=== PATIENT | female | born 1975 | race Caucasian/White ===

== ENCOUNTER 2019-02-04 10:48 | Outpatient (RCR) | payer BC, SELFPAY ==
--- NOTE | ~2019-02-04 | US_ITS ---
EXAMINATION: US OB limited DATE: 02/04/2019 12:29 INDICATION: Spotting. Fall. Second trimester. TECHNIQUE: Real-time ultrasound of the pelvis was performed. COMPARISON: None. FINDINGS: There is a single fetus in breech presentation. The placenta is fundal and posterior. heart ra te is 134 beats per minute (bpm). The amniotic fluid volume is subjectively normal. IMPRESSION: 1. Single living fetus in breech presentation. Reviewed, dictated and finalized at location A. S ENABLEMENT MANAGER
[2019-02-04 13:14] VITALS: BP 131/77; PULSE 94
== END 2019-05-05 23:59 | disposition home or self-care (01) ==
LOC: ANHOBOP 10:48
PROVIDERS: PCP Family Medicine; Visit Provider Obstetrics & Gynecology
DX: O99.89 Other specified diseases and conditions complicating pregnancy, childbirth and the puerperium (principal); W19.XXXA Unspecified fall, initial encounter; Z3A.22 22 weeks gestation of pregnancy
CPT/HCPCS: 59025; 76815

== ENCOUNTER 2019-06-07 10:00 | Outpatient (CLI) | payer BC, SELFPAY ==
[2019-06-07 10:26] LABS: Hematocrit 32.7 % (37.0-47.0); Hemoglobin 10.8 g/dL (12.0-15.0); Mean Corpuscular Hemoglobin 28.3 pg (26-34); Mean Corpuscular Volume 85.6 fl (80-100); Mean Platelet Volume 11.4 fl (7.4-10.4); Platelet Count Result 214 k/mm3 (150-375); Red Blood Count 3.82 M/mm3 (4.2-5.4); Red Cell Distribution Width 14.3 % (11.5-14.5); White Blood Count 13.2 K/mm3 (4.5-10.0)
[2019-06-08 11:10] LABS: Rapid Plasma Reagin Non-Reactive (NonReactive)
== END 2019-06-07 10:01 | disposition home or self-care (01) ==
PROVIDERS: PCP Family Medicine; Visit Provider Obstetrics & Gynecology
DX: Z34.93 Encounter for supervision of normal pregnancy, unspecified, third trimester (principal); Z3A.00 Weeks of gestation of pregnancy not specified
CPT/HCPCS: 36415; 85027; 86592; 86850; 86900; 86901

== ENCOUNTER 2019-06-08 05:14 | Inpatient (IN) | payer BC, SELFPAY ==
--- NOTE | 2019-05-18 13:04 | PC.NURSE ---
VERIFIED WITH OR SCHEDULE AND PATIENT --C/S ON 06/08/19 AT 1030 PATIENT GIVEN REQUISITION FOR LAB DRAW ON 06/07/2019
--- NOTE | 2019-06-07 11:00 | PM.IMHP ---
H&P: HPI History of Present Illness Chief complaint: Prior Narrative: Marlys Zheng is a 43 year old female 031 whose last menstrual period was 09/02/2018, EDC is 06/09/2019, presents at 39 weeks gestation for repeat section. She declined attempted vaginal after . She had a prior section. The has been uncomplicated short of being advanced maternal age. Review of Systems Review of Systems: All systems reviewed & are unremarkable except as noted in HPI and below PMFSH Family History Family History Father Diabetes mellitus Hypertension MRSA (methicillin resistant Staphylococcus aureus) Mother H/O: hysterectomy Cholecystectomy planned Sibling Hypothyroidism Grandparent Acute myocardial infarction Cerebrovascular accident Grandparent Lung cancer Grandparent Heart disease Social History Social History Smoking status: Never smoker Alcohol intake: current Substance use: never Spiritual care concerns: No Meds Home Medications and Allergies Home Medications Medication Instructions Recorded Confirmed Type PNV cmb#95-ferrous fumarate-FA 1 tablet PO DAILY 05/18/19 05/18/19 History [] calcium carbonate-vitamin D3 1 tablet PO DAILY 05/18/19 05/18/19 History [Calcium 500 + D] diphenhydramine HCl [Benadryl] 50 mg PO HS 05/18/19 05/18/19 History fluticasone propionate [Flonase 1 spray INTRANASAL BID 05/18/19 05/18/19 History Allergy Relief] Allergies Allergy/AdvReac Type Severity Reaction Status Date / Time iodine Allergy Severe Anaphylactic Verified 05/18/19 12:30 Shock mercury (elemental) Allergy Severe ANAPHAL. Unverified 05/18/19 12:30 SHOCK aluminum Allergy Intermediate HIVES Verified 12/02/16 13:40 nickel Allergy Unknown Rash Verified 09/21/18 09:46 cobalt Allergy Anaphylactic Verified 05/18/19 12:30 Shock SHELLFISH Allergy Unknown ANAPHAL. Uncoded 12/02/16 13:39 SHOCK Exam Const: General: no acute distress Eyes: General: appearance normal, both eyes and all related structures Neck: Neck: supple and no JVD Thyroid: thyroid normal Resp: Effort & Inspection: normal respiratory effort Auscultation: clear to auscultation bilaterally Cardio: Rate: regular rate Rhythm: regular rhythm GI: Inspection: normal to inspection Auscultation: normal bowel sounds Other: gravid soft uterus : General: Yes bladder normal to palpation External Female Exam: normal external appearance Speculum Exam - Vagina: normal vaginal discharge and No vaginal bleeding Speculum Exam - Cervix: nontender Bimanual exam- vagina & uterus: bladder normal to palpation and No Cervical tenderness present OB/external & speculum: No vaginal bleeding Skin: General skin exam: no rashes or lesions noted Extrem: General: normal to inspection and no edema Psych: Mental Status: mental status grossly normal Affect: normal affect Assessment and Plan Additional Plan impression: Term with previous section/ AMA Plan: Repeat section
[2019-06-08] VITALS (62 sets, daily range): BP systolic 124–173; BP diastolic 58–146; PULSE 64–88; RESP 11–16; TEMP 36.2–37; O2SAT 95–100; BMI 38.9
[2019-06-08] MEDS: LACTATED RINGERS 1,000 ML 999 ML IV CONT (05:53)
--- NOTE | 2019-06-08 06:35 | WPDHPUPDATE1 ---
History and Physical Update Update Date/Time: 06/08/19 06:35 History and Physical has been reviewed, including an updated exam of the patient. There are NO changes in the patient's condition. Risks, benefits, and alternatives have been discussed and questions answered. Patient agrees to proceed with procedure.
[2019-06-08] MEDS: LACTATED RINGERS 1,000 ML 125 ML IV CONT (06:36)
--- NOTE | 2019-06-08 07:14 | P.PNAN_ITS ---
Anes - Initial Pre Proc Eval Procedure: Operation Date: 06/08/19 07:30 Proposed Procedures p Repeat Section - Augustin Waldrop MD Date/Time: 06/08/19 07:14 Surgeon: Augustin Waldrop MD Pre Op Diagnosis: R Patient Data Age: 43 Gender: F Height: 5 ft 7 in Weight: 113 kg Last Vital Signs Temp 36.6 C 06/08/19 07:13 Pulse 82 06/08/19 06:16 BP 143/58 H 06/08/19 06:16 Allergies Allergy/AdvReac Type Severity Reaction Status Date / Time iodine Allergy Severe Anaphylactic Verified 05/18/19 12:30 Shock mercury (elemental) Allergy Severe ANAPHAL. Unverified 05/18/19 12:30 SHOCK aluminum Allergy Intermediate HIVES Verified 12/02/16 13:40 nickel Allergy Unknown Rash Verified 09/21/18 09:46 cobalt Allergy Anaphylactic Verified 05/18/19 12:30 Shock SHELLFISH Allergy Unknown ANAPHAL. Uncoded 12/02/16 13:39 SHOCK Home Medications Medication Instructions Recorded Confirmed Type PNV cmb#95-ferrous fumarate-FA 1 tablet PO DAILY 05/18/19 05/18/19 History [] calcium carbonate-vitamin D3 1 tablet PO DAILY 05/18/19 05/18/19 History [Calcium 500 + D] diphenhydramine HCl [Benadryl] 50 mg PO HS 05/18/19 05/18/19 History fluticasone propionate [Flonase 1 spray INTRANASAL BID 05/18/19 05/18/19 History Allergy Relief] hydrocodone-acetaminophen [[place]] 1 tablet PO Q4H PRN #30 tablet 06/08/19 Rx Patient hx anesthesia problems: none Family hx anesthesia problems: none PMFSH Past Medical History Medical History Pulmonary embolism Family History Family History Father Diabetes mellitus Hypertension MRSA (methicillin resistant Staphylococcus aureus) Mother H/O: hysterectomy Cholecystectomy planned Sibling Hypothyroidism Grandparent Acute myocardial infarction Cerebrovascular accident Grandparent Lung cancer Grandparent Heart disease Social History Social History Smoking status: Never smoker Alcohol intake: current Substance use: never Spiritual care concerns: No Anes - Eval Final PreProcedure Day of Procedure 06/08/19 07:14 Patient weight: morbidly obese Heart: regular rate and rhythm Lungs: clear to auscultation Airway: Mallampati scale class II Neurological: alert and oriented Last oral intake: >/= 8 hours ASA classification: III Emergent: no Anesthetic plan: proceed Anesthesia type and monitoring: regional spinal and standard monitoring Informed Consent: The patient's anesthetic plan and its attendant risks and benefits were discussed with the patient/family/POA. Questions were solicited and answers provided to the satisfaction of the patient/family/POA.
--- NOTE | 2019-06-08 08:10 | PM.PROC ---
Procedure Note - Detailed Date of procedure: 06/08/19 Pre-op diagnosis: R Surgeon: Augustin Waldrop MD Postop diagnosis: Term previous section Procedure: Repeat low-transverse section Q BL: 350cc Anesthesia: spinal Findings: Female vertex 8 lb 4 oz with Apgars of 7 [id number] and 9 [id number] Complications: None Description of procedure patient was prepped and draped in the normal sterile fashion placed in the supine position. Under excellent spinal anesthetic the previous Pfannenstiel incision was opened and progressed through layers to the fascia. Fascia was incised upward outward fashion bilaterally. Underlying muscles were sharply dissected. Parietal peritoneum elevated by a Lisa clamps and entered by sharp dissection. This was carried superiorly and then inferiorly to the dome of the bladder. Bladder flap was formed bladder blade placed. A low-transverse incision made in the head delivered in the ELIZABETH position. Anterior posterior shoulder delivered spontaneously. Cord clamped x2 and cut and passed off the table with an given Apgars of 7 [id number] and 9 [id number]. Cord blood was drawn. Placenta delivered intact manually. Uterus a wrapped in a moist towel. After assuring no membranes or remained in the uterus, the uterus was closed in continuous running 0 Vicryl from lateral edge to lateral edge. This was followed by 2nd imbricating running locking 0 Vicryl from lateral edge to lateral edge. Hemostasis was assured hematuria was placed over the raw surface area. Ovaries and tubes appeared within normal limits. Uterus returned the abdomen. Laps removed and accounted for. The fascia closed with continuous running 0 Vicryl from lateral edge to midline bilaterally. The skin was closed with 4 O Monocryl and glue. Q BL was 350cc all sponge, needle, instrument counts were correct. There were no immediate complications
[2019-06-08] MEDS: ONDANSETRON INJ 4 MG/2 ML VIAL IV PUSH (09:56)
--- NOTE | 2019-06-08 11:02 | LDADM ---
This patient, Marlys Zheng, was admitted to OB 2nd Floor Room 292 on 06/08/19 at 05:14. Plans for labor, pain management and were discussed with patient. Patient/family oriented to hospital policies and general routines including ID bracelet, bed and alarms, visiting hours, pain management, procedures, bathroom and other care routines, personal items, smoking policy, room service/diet and guest tray routines, security routines, and visiting hours. Patient/Family are encouraged to report perceived risks to care and to ask questions if they do not understand what they are told or what they should do. See OBIX for further documentation.
--- NOTE | 2019-06-08 11:15 | PC.NURSE ---
Consulted with patient, mother reports she had latch issues with first child and pumped and bottle fed for several months. Mother is pleased infant eagerly latched for first feeding and wants to establish correct latch. Reviewed feeding cues, frequencies, duration of feedings, feeding elimination flow sheet, and signs of adequate intake. Demonstrated stimulation techniques to wake infant for feeding. Assisted with infant to breast. Reviewed positioning/alignment in cross cradle, holding breast in U hold and guided asymmetrical latch on. was able to latch correctly. nursed eagerly, with steady draws and frequent swallowing noted. Reviewed signs of a correct latch, effective nursing and suck swallow ratio. Infant was able to maintain latch without discomfort to mother. Nipple care reviewed. Instructed mother to call out for RN assistance if she is unable to latch infant for feeding or she has discomfort with nursing. Instructed feeding should be initiated three hours from start of last feeding or if feeding cues are noted before. Mother voiced understanding of information shared.
[2019-06-08] MEDS: LABETALOL HCL 100 MG TABLET PO (12:04)
--- NOTE | 2019-06-08 12:25 | OBPPTRN ---
Patient transferred to post room #292 via stretcher. Support person present. Oriented to unit, room, information board, rooming in, admission packet and security measures. Patient verbalizes understanding.
[2019-06-08] MEDS: NALBUPHINE HCL 10 MG/ML AMPUL 2 MG IV PUSH ×2 (12:45→16:54)
[2019-06-08] MEDS: DEXTROSE 5%/0.45% SOD CHL 1,000 ML 125 ML IV CONT (13:05)
[2019-06-08] MEDS: IBUPROFEN 600 MG TABLET PO (22:29)
[2019-06-09 04:45] VITALS: BP 141/90; PULSE 75; RESP 16; TEMP 36.4
[2019-06-09] MEDS: IBUPROFEN 600 MG TABLET PO ×3 (04:57→18:55)
[2019-06-09 05:20] LABS: Basophils Absolute Auto 0.1 K/mm3 (0.0-0.1); Basophils Percent Auto 0.4 % (0.2-1.2); Eosinophils Absolute Auto 0.2 K/mm3 (0-0.3); Eosinophils Percent Auto 1.3 % (0-4.4); Hematocrit 27.9 % (37.0-47.0); Hemoglobin 8.9 g/dL (12.0-15.0); Immature Granulocyte Absolute 0.07 K/mm3 (0.00-0.031); Immature Granulocyte Percent A 0.6 % (0-0.5); Lymphocytes Absolute Auto 2.18 K/mm3 (0.9-3.2); Lymphocytes Percent Auto 17.3 % (18.3-44.2); Mean Corpuscular HGB Conc 31.9 g/dl (32-36); Mean Corpuscular Volume 87.7 fl (80-100); Mean Platelet Volume 11.4 fl (7.4-10.4); Monocytes Absolute Auto 0.9 K/mm3 (0.1-0.6); Monocytes Percent Auto 7.2 % (2.6-8.5); Neutrophils Absolute Auto 9.2 K/mm3 (1.3-6.7); Neutrophils Percent Auto 73.2 % (45.5-73.1); Platelet Count Result 175 k/mm3 (150-375); Red Blood Count 3.18 M/mm3 (4.2-5.4); Red Cell Distribution Width 14.4 % (11.5-14.5); White Blood Count 12.6 K/mm3 (4.5-10.0)
--- NOTE | 2019-06-09 06:42 | PM.OBPNVD ---
OB - PN: Subj Subjective Date/time seen: 06/09/19 06:42 Patient comments: no complaints and pain well controlled baby status: doing well and nursing well OB - PN: Obj Data Labs CBC & Chem 7: 06/09/19 04:48 Labs: Laboratory Results - last 24 hr 06/09/19 04:48 WBC 12.6 H RBC 3.18 L Hgb 8.9 L Hct 27.9 L MCV 87.7 MCH 28.0 MCHC 31.9 L RDW 14.4 Plt Count 175 MPV 11.4 H Immature Gran % (Auto) 0.6 H Neut % (Auto) 73.2 H Lymph % (Auto) 17.3 L [place] % (Auto) 7.2 Eos % (Auto) 1.3 Baso % (Auto) 0.4 Lymph # (Auto) 2.18 [place] # (Auto) 0.9 H Eos # (Auto) 0.2 Baso # (Auto) 0.1 Abs Immat Gran (auto) 0.07 H Absolute Neuts (auto) 9.2 H Absolute Nucleated RBC 0.0 Nucleated RBC % 0.0 OB - PN A/P Plan day: 1 Plan: routine care Time Spent With Patient Time: Total time spent is greater than 50% in coordination of care (as documented) at patient's floor/unit and/or counseling patient: Time with patient: less than 15 minutes Review of Systems Review of Systems: All systems reviewed & are unremarkable except as noted in HPI and below Exam Const: General: no acute distress Eyes: General: appearance normal, both eyes and all related structures Neck: Neck: supple and no JVD Thyroid: thyroid normal Resp: Effort & Inspection: normal respiratory effort Auscultation: clear to auscultation bilaterally Cardio: Rate: regular rate Rhythm: regular rhythm GI: Inspection: non-distended GI Palp: Yes Soft to palpation, No Tenderness to palpation present (GI) and No Guarding due to palpation present (GI) Auscultation: normal bowel sounds : General: Yes bladder normal to palpation External Female Exam: normal external appearance Speculum Exam - Vagina: normal vaginal discharge and No vaginal bleeding Speculum Exam - Cervix: nontender Bimanual exam- vagina & uterus: bladder normal to palpation and No Cervical tenderness present OB/external & speculum: No vaginal bleeding Skin: General skin exam: no rashes or lesions noted Extrem: General: normal to inspection and no edema Psych: Mental Status: mental status grossly normal Affect: normal affect
[2019-06-09 08:05] VITALS: BP 136/86; PULSE 79; RESP 16; TEMP 36.8; O2SAT 98
[2019-06-09] MEDS: DOCUSATE SODIUM 100 MG CAPSULE PO ×2 (08:05→18:55)
[2019-06-09] MEDS: POLYSACCHARIDE IRON COMPLEX 150 MG CAPSULE PO ×2 (08:08→18:55)
[2019-06-09] MEDS: MULTIVIT/MIN/PREN/FOL AC/IRON TABLET 1 TAB PO (08:08)
[2019-06-09 09:00] VITALS: TEMP 36.9
--- NOTE | 2019-06-09 09:00 | PC.NURSE ---
Consult with pt., mother reports is fussy after feedings. Mother is concerned with giving a bottle, she had difficulties with latching after first child wag given a bottle for slow weight gain. Mother is able to latch infant correctly without assist. eagerly latches nursing with long draws and freq swallowing noted. Advised mother is in WNL on all sings of adequate intake. Mother states she is concerned is fussy and does not appear to be satisfied. Offered and explained the SNS. Mother is willing to use and give formula. SNS set up and used with this feeding. Reviewed application, cleaning and amount of formula to use per feeding. Mother and her sister( her person assisting her with care) are able to easily latch infant with SNS. nurses eagerly with long draws and able to maintain deep latch.
--- NOTE | 2019-06-09 09:44 | WPDANLDPN2 ---
Anes-Prog Note L&D Date/Time: 06/09/19 09:44 Comfortable throughout: section Neuraxial method: spinal Epidural/Spinal procedure site: clean & non-tender Neuro status: Neuro function grossly intact. Cardiovascular status: normal Respiratory status: normal Airway patency: baseline Mental status: baseline Post-Op hydration status: normal Vital Signs: Last Vital Signs Temp 98.2 F 06/09/19 08:05 Pulse 79 06/09/19 08:05 Resp 16 06/09/19 08:05 BP 136/86 06/09/19 08:05 Pulse Ox 98 06/09/19 08:05 I/O: Intake & Output 06/08/19 06/09/19 06/09/19 23:59 07:59 15:59 Intake Total 2000 500 Output Total 1300 800 Balance 700 -300 Post-procedural complaints: none Patient feedback: Patient satisfied with anesthetic care.
--- NOTE | 2019-06-09 09:45 | WPDANLDNPN2 ---
Anes-Prog Note L&D-Neuraxial Date/Time: 06/09/19 09:45 Neuraxial medications: intrathecal PF morphine Opiod-related complaints: pruritis mild, no treatment Patient feedback: Patient satisfied with post-operative pain management.
[2019-06-09 20:20] VITALS: BP 150/85; PULSE 75; RESP 16; RESP 18; TEMP 36.6; O2SAT 96
[2019-06-10 01:02] VITALS: BP 143/96; PULSE 88; RESP 18; TEMP 36.6; O2SAT 98
[2019-06-10] MEDS: IBUPROFEN 600 MG TABLET PO ×2 (01:20→08:09)
--- NOTE | 2019-06-10 06:29 | P.DS_ITS ---
DS: Diagnosis Admitting Diagnosis Admitting Diagnosis: term/prev section DS: Summary Time Spent with Patient Time attestation: Total time spent providing and/or coordinating discharge services: Exam Const: General: no acute distress Eyes: General: appearance normal, both eyes and all related structures Neck: Neck: supple and no JVD Thyroid: thyroid normal Resp: Effort & Inspection: normal respiratory effort Auscultation: clear to auscultation bilaterally Cardio: Rate: regular rate Rhythm: regular rhythm GI: Inspection: non-distended GI Palp: Yes Soft to palpation, No Tenderness to palpation present (GI) and No Guarding due to palpation present (GI) Auscultation: normal bowel sounds : General: Yes bladder normal to palpation External Female Exam: normal external appearance Speculum Exam - Vagina: normal vaginal discharge and No vaginal bleeding Speculum Exam - Cervix: nontender Bimanual exam- vagina & uterus: bladder normal to palpation and No Cervical tenderness present OB/external & speculum: No vaginal bleeding Skin: General skin exam: no rashes or lesions noted Extrem: General: normal to inspection and no edema Psych: Mental Status: mental status grossly normal Affect: normal affect Discharge Plan Discharge Attending physician on discharge: Augustin Waldrop Discharging Clinician: Augustin Waldrop Patient Disposition: Home, Self-Care Activity: may shower, no straining, may drive after 2 weeks and pelvic rest Diet: heart healthy Patient Instructions: Antibiotic Form Stand Alone Forms: General Discharge Information Follow-up/Referrals: Augustin Waldrop MD [Physician] - Discharge Medications: New hydrocodone-acetaminophen [[place]] 5-325 mg tablet 1 tablet PO Q4H PRN (Reason: pain) Qty: 30 RF: 0 Continued diphenhydramine HCl [Benadryl] 25 mg Capsule 50 mg PO HS RF: 0 fluticasone propionate [Flonase Allergy Relief] 50 mcg/actuation [place],Suspension 1 spray INTRANASAL BID RF: 0 calcium carbonate-vitamin D3 [Calcium 500 + D] 500 mg(1,250mg) -200 unit Tablet 1 tablet PO DAILY RF: 0 PNV cmb#95-ferrous fumarate-FA [] 28 mg iron- 800 mcg Tablet 1 tablet PO DAILY RF: 0 Date of admission: 06/08/19 05:14 Primary Care Provider: Chepe Romo Admitting Provider: Augustin Waldrop Attending physician on admission: Augustin Waldrop
--- NOTE | 2019-06-10 06:30 | PM.OBPNVD ---
OB - PN: Subj Subjective Date/time seen: 06/10/19 06:30 Patient comments: no complaints and pain well controlled baby status: doing well and nursing well OB - PN: Obj Data Labs CBC & Chem 7: 06/09/19 04:48 OB - PN A/P Plan day: 2 Plan: routine care, discharge home and follow up 6 weeks (4 weeks) Time Spent With Patient Time: Total time spent is greater than 50% in coordination of care (as documented) at patient's floor/unit and/or counseling patient: Time with patient: less than 15 minutes Review of Systems Review of Systems: All systems reviewed & are unremarkable except as noted in HPI and below Exam Const: General: no acute distress Eyes: General: appearance normal, both eyes and all related structures Neck: Neck: supple and no JVD Thyroid: thyroid normal Resp: Effort & Inspection: normal respiratory effort Auscultation: clear to auscultation bilaterally Cardio: Rate: regular rate Rhythm: regular rhythm GI: Inspection: normal to inspection and incision (cdi) Auscultation: normal bowel sounds : General: Yes bladder normal to palpation External Female Exam: normal external appearance Speculum Exam - Vagina: normal vaginal discharge and No vaginal bleeding Speculum Exam - Cervix: nontender Bimanual exam- vagina & uterus: bladder normal to palpation and No Cervical tenderness present OB/external & speculum: No vaginal bleeding Skin: General skin exam: no rashes or lesions noted Extrem: General: normal to inspection and no edema Psych: Mental Status: mental status grossly normal Affect: normal affect
[2019-06-10] MEDS: POLYSACCHARIDE IRON COMPLEX 150 MG CAPSULE PO (08:12)
[2019-06-10] MEDS: DOCUSATE SODIUM 100 MG CAPSULE PO (08:12)
[2019-06-10] MEDS: MULTIVIT/MIN/PREN/FOL AC/IRON TABLET 1 TAB PO (08:12)
[2019-06-10 08:55] VITALS: BP 149/86; PULSE 84; RESP 16; TEMP 36.4; O2SAT 96
--- NOTE | 2019-06-10 10:10 | PC.NURSE ---
Mother is able to independently latch infant with appropriate positioning/alignment. She denies any nipple discomfort, is feeding as required and waking to feed if needed. has had 9 effective feedings in the past 24 hours, and is currently meeting outcomes for weight, output, jaundice and feeding frequencies. Mother continues to use the SNS feeder and will continue to use until her milk is in and will wean as is satisfied with .Mother states she feels confident to continue effective at home using SNS. Reviewed transition to breast milk, signs of adequate intake, and engorgement/relief. Instructed to call ICP if intake/output less than required. Reviewed regular medications mother is taking. Information provided per Tory. Reviewed community resources on the [facility] website and in the Mom/Baby guide. Information on outpatient services provided. Mother has no further questions at this time.
--- NOTE | 2019-06-10 10:21 | PC.NURSE ---
Patient viewed the discharge video Mother & Baby Care, The First Two Weeks . Patient was given the opportunity and encouraged to ask questions. Patient verbalized understanding of information shared and has been given the mother/baby guide for home reference.
[2019-06-11 11:10] VITALS: BP 155/94; PULSE 84; RESP 18; TEMP 36.9
== END 2019-06-10 11:50 | disposition home or self-care (01) | DRG 788 ==
LOC: ANHLDR 06:36 → ANHOB2 10:47
PROVIDERS: Admitting Provider Obstetrics & Gynecology; PCP Family Medicine; Visit Provider Obstetrics & Gynecology
PROC: 10D00Z1 Extraction of Products of Conception, Low, Open Approach (ICD-10-PCS; CPT 59514; principal; 2019-06-08 07:30)
DX: O34.211 Maternal care for low transverse scar from previous cesarean delivery (principal); Z37.0 Single live birth; Z3A.39 39 weeks gestation of pregnancy; O99.214 Obesity complicating childbirth; E66.01 Morbid (severe) obesity due to excess calories
CPT/HCPCS: 36415; 85025; A9270; J0131; J1200; J2274; J2300; J2405; J2590; J7120

== ENCOUNTER → 2019-10-01 13:13 | Outpatient (CLI) | payer BC, SELFPAY ==
--- NOTE | ~2019-10-01 | MM_ITS ---
EXAMINATION: MM screening [facility] BI w rusty HISTORY: Screening mammogram, currently breast-feeding TECHNIQUE: Craniocaudal and mediolateral oblique 3-D tomosynthesis images were obtained and synthetic 2-D images were generated. CAD analysis was submitted and interpreted. COMPARISON: 06/16/2018, 09/09/2017, 08/11/2017 BREAST PARENCHYMAL COMPOSITION: The breasts are heterogeneously dense, which may obscure small masses . FINDINGS: Interval increase in left breast density is consistent with history of breast-feeding. Ther e is no evidence of suspicious mass, calcification, or architectural distortion to suggest malignancy in either breast. There has been no suspicious interval change. IMPRESSION: 1. No mammographic evidence of malignancy. 2. Recommend routine screening mammography in one year. BI-RADS Category 1: Negative Reviewed, dictated and finalized at location A.
== END ==
PROVIDERS: PCP Family Medicine; Visit Provider Obstetrics & Gynecology
DX: Z12.31 Encounter for screening mammogram for malignant neoplasm of breast (principal)
CPT/HCPCS: 77063; 77067

== ENCOUNTER → 2020-08-05 00:48 | Outpatient (CLI) | payer BC, SELFPAY ==
[2020-08-05 19:43] LABS: SARS-CoV-2 RNA PCR Negative
== END ==
PROVIDERS: PCP Family Medicine; Visit Provider Obstetrics & Gynecology
DX: Z01.812 Encounter for preprocedural laboratory examination (principal); Z20.822 Contact with and (suspected) exposure to COVID-19
CPT/HCPCS: C9803; U0003; U0005

== ENCOUNTER 2020-08-09 02:16 | Day surgery (SDC) | payer BC, SELFPAY ==
[2020-07-27 09:58] VITALS: BMI 25.1
[2020-08-09] VITALS (8 sets, daily range): BP systolic 100–139; BP diastolic 67–95; PULSE 45–93; RESP 12–16; TEMP 36.1–36.7; O2SAT 95–100
--- NOTE | 2020-08-09 09:30 | WPDANESEPPF ---
Anes - Initial Pre Proc Eval Procedure: Operation Date: 08/09/20 12:00 Proposed Procedures p Hysteroscopy, Dilation and Curettage with Maureen Ablation - Jamie Hernandez MD s Laparoscopic Bilateral Tubal Sterilization with Fallopian Rings - Jamie Hernandez MD Date/Time: 08/09/20 09:30 Surgeon: Jamie Hernandez MD Pre Op Diagnosis: heavy bleeding, desires sterilization Patient Data Age: 44 Gender: F Height: 1.7 m Weight: 72.8 kg Allergies Allergy/AdvReac Type Severity Reaction Status Date / Time cobalt Allergy Severe Anaphylactic Verified 08/09/20 10:18 Shock iodine Allergy Severe Anaphylactic Verified 07/27/20 09:35 Shock mercury (elemental) Allergy Severe ANAPHAL. Verified 07/27/20 09:35 SHOCK aluminum Allergy Intermediate HIVES Verified 07/27/20 09:35 antiarthritic combination Allergy Unknown LOOKS Verified 08/09/20 10:18 no.1 LIKE I WAS [From [place]] BURNED camphor [From [place]] Allergy Unknown LOOKS Verified 08/09/20 10:18 LIKE I WAS BURNED menthol [From [place]] Allergy Unknown LOOKS Verified 08/09/20 10:18 LIKE I WAS BURNED methyl salicylate Allergy Unknown LOOKS Verified 08/09/20 10:18 [From [place]] LIKE I WAS BURNED nickel Allergy Unknown Rash Verified 07/27/20 09:35 SHELLFISH Allergy Unknown ANAPHALACTIC Uncoded 08/09/20 10:18 SHOCK Home Medications Medication Instructions Recorded Confirmed Type calcium carbonate-vitamin D3 1 tablet PO DAILY 05/18/19 08/09/20 History [Calcium 500 + D] fluticasone propionate [Flonase 1 spray INTRANASAL DAILY 05/18/19 08/09/20 History Allergy Relief] cetirizine 10 mg capsule 10 mg PO DAILY 01/10/20 08/09/20 History calcium fructoborate [Move Free 216 mg PO DAILY 07/27/20 08/09/20 History Ultra Faster Comfort] ferrous sulfate [Slow Release Iron] 143 mg PO DAILY 07/27/20 08/09/20 History multivitamin [Daily Multivitamin] 1 tablet PO DAILY 07/27/20 08/09/20 History Patient hx anesthesia problems: none Family hx anesthesia problems: none PMFSH Past Medical History Medical History (Updated 08/09/20 @ 11:19 by Roberto Locke DO) Adjustment insomnia Anaphylactic reaction due to other fish, subsequent encounter delivery delivered x 2 Fracture of rib of left side Polyp of cervix uteri Surgical History Surgical History History of delivery History of D&C History of knee surgery Family History Family History Father Diabetes mellitus Hypertension MRSA (methicillin resistant Staphylococcus aureus) Mother H/O: hysterectomy Cholecystectomy planned Sibling Hypothyroidism Grandparent Acute myocardial infarction Cerebrovascular accident Grandparent Lung cancer Grandparent Heart disease Social History Social History Smoking status: Never smoker Alcohol intake: current Substance use: never Living arrangements: with family Spiritual care concerns: No Anes - Eval Final PreProcedure Day of Procedure 08/09/20 09:30 Patient weight: overweight Heart: regular rate and rhythm Lungs: clear to auscultation and normal air movement Airway: Mallampati scale class II Neurological: alert and oriented Last oral intake: >/= 8 hours ASA classification: II Emergent: no Anesthetic plan: proceed Anesthesia type and monitoring: general ETT and standard monitoring Informed Consent: The patient's anesthetic plan and its attendant risks and benefits were discussed with the patient/family/POA. Questions were solicited and answers provided to the satisfaction of the patient/family/POA.
--- NOTE | 2020-08-09 09:41 | PM.IMHP ---
H&P: HPI History of Present Illness Date/Time: 08/09/20 09:41 44 y/o with heavy, irregular menses. She also desires permanent contraception. Chief Complaint: Heavy periods Review of Systems Review of Systems: All systems reviewed & are unremarkable except as noted in HPI and below PMFSH Past Medical History Medical History (Updated 08/09/20 @ 12:01 by Jamie Hernandez MD) Adjustment insomnia Anaphylactic reaction due to other fish, subsequent encounter delivery delivered x 2 Fracture of rib of left side Surgical History Surgical History History of delivery History of D&C History of knee surgery Family History Family History Father Diabetes mellitus Hypertension MRSA (methicillin resistant Staphylococcus aureus) Mother H/O: hysterectomy Cholecystectomy planned Sibling Hypothyroidism Grandparent Acute myocardial infarction Cerebrovascular accident Grandparent Lung cancer Grandparent Heart disease Social History Social History Smoking status: Never smoker Alcohol intake: current Substance use: never Living arrangements: with family Spiritual care concerns: No Meds Home Medications and Allergies Home Medications Medication Instructions Recorded Confirmed Type calcium carbonate-vitamin D3 1 tablet PO DAILY 05/18/19 08/09/20 History [Calcium 500 + D] fluticasone propionate [Flonase 1 spray INTRANASAL DAILY 05/18/19 08/09/20 History Allergy Relief] cetirizine 10 mg capsule 10 mg PO DAILY 01/10/20 08/09/20 History calcium fructoborate [Move Free 216 mg PO DAILY 07/27/20 08/09/20 History Ultra Faster Comfort] ferrous sulfate [Slow Release Iron] 143 mg PO DAILY 07/27/20 08/09/20 History multivitamin [Daily Multivitamin] 1 tablet PO DAILY 07/27/20 08/09/20 History Allergies Allergy/AdvReac Type Severity Reaction Status Date / Time cobalt Allergy Severe Anaphylactic Verified 08/09/20 10:18 Shock iodine Allergy Severe Anaphylactic Verified 07/27/20 09:35 Shock mercury (elemental) Allergy Severe ANAPHAL. Verified 07/27/20 09:35 SHOCK aluminum Allergy Intermediate HIVES Verified 07/27/20 09:35 antiarthritic combination Allergy Unknown LOOKS Verified 08/09/20 10:18 no.1 LIKE I WAS [From [place]] BURNED camphor [From [place]] Allergy Unknown LOOKS Verified 08/09/20 10:18 LIKE I WAS BURNED menthol [From [place]] Allergy Unknown LOOKS Verified 08/09/20 10:18 LIKE I WAS BURNED methyl salicylate Allergy Unknown LOOKS Verified 08/09/20 10:18 [From [place]] LIKE I WAS BURNED nickel Allergy Unknown Rash Verified 07/27/20 09:35 SHELLFISH Allergy Unknown ANAPHALACTIC Uncoded 08/09/20 10:18 SHOCK Vital Signs AVSS Exam Const: Orientation/consciousness: patient oriented x3 Other: Well-developed, well-nourished female in no acute distress. Neck: Thyroid: thyroid normal Lymphatic: no lymphadenopathy noted (in neck, axilla or inguinal nodes) Resp: Effort & Inspection: normal respiratory effort Auscultation: clear to auscultation bilaterally Cardio: Rate: regular rate Rhythm: regular rhythm Heart sounds: S1 normal heart sound present and S2 normal heart sound present GI: Other: ABD: Soft, nontender, nondistended. No guarding or rebound tenderness. No hepatosplenomegaly. : General: Yes no CVA tenderness Other: External genitalia: normal female hair distribution, without lesion. Urethral meatus: no lesion, non prolapsed. Bladder: no mass, nontender Vagina: well-estrogenized, without lesion or discharge. No cystocele or rectocele. Cervix: no lesion or discharge. Uterus: small, anteverted, freely mobile, nontender Adnexa: no mass or tenderness. Anus/perineum: no lesions, nontender Back/Spine/Pelvis:
[2020-08-09] MEDS: LACTATED RINGERS 1,000 ML 30 ML IV CONT ×2 (10:55→12:59)
[2020-08-09 11:06] LABS: Hematocrit 41.8 % (37.0-47.0)
--- NOTE | 2020-08-09 12:01 | WPDHPUPDATE1 ---
History and Physical Update Update Date/Time: 08/09/20 12:01 History and Physical has been reviewed, including an updated exam of the patient. There are NO changes in the patient's condition. Risks, benefits, and alternatives have been discussed and questions answered. Patient agrees to proceed with procedure.
--- NOTE | 2020-08-09 13:00 | PM.PROC ---
Procedure Note - Detailed Date of procedure: 08/09/20 Pre-op diagnosis: heavy bleeding, desires sterilization Menometrorrhagia Desired sterility Post-op diagnosis: same Procedure performed: Laparoscopic bilateral tubal ligation Hysteroscopy Dilation and sharp curettage Endometrial ablation Description of procedure: The patient was taken to the operating room where general endotracheal anesthesia was administered. She was prepared and draped in the usual sterile fashion in dorsal lithotomy position. The bladder was drained with a red rubber catheter. A sterile speculum was placed into the vagina. The anterior lip of the cervix was grasped with a single-tooth tenaculum. The acorn uterine manipulator was placed. The speculum was withdrawn. Gloves were changed and attention was turned the abdomen. An infraumbilical skin incision was made with a scalpel. The abdomen was tented and a 5mm bladeless trocar was advanced under direct laparoscopic visualization. Pneumoperitoneum was administered using carbon dioxide gas. A survey of the pelvis and abdomen revealed the findings noted above. A second skin incision was made in the midline above the symphysis pubis and an 8mm bladeless trocar was advanced under direct laparoscopic visualization. The fallopian tube on the right side was followed out to the fimbriated end for identification. It was then grasped in the midportion with the Falope ring applicator. The Falope ring was applied. A good loop of tube was noted to be distal to the ring. Hemostasis was excellent. The device was reloaded and the contralateral tube was similarly identified and ligated. A suboptimal application was noted here, so the Kleppinger forceps were used to fulgurate the midportion of the tube as well. A total of 4mL of 1% lidocaine was infiltrated into the serosa of the proximal tubes for postoperative anesthesia. The ports were withdrawn. The gas was allowed to escape. The skin incisions were reapproximated using interrupted subcuticular sutures of 4 0 Vicryl. Dermaflex was applied externally. Attention was then redirected to the vagina where the speculum was reintroduced and the acorn manipulator was withdrawn. Ten mL of 1% lidocaine was administered in a paracervical block. The cervix was then gently dilated using Hegar dilators until an 8 mm dilator could be passed. Hysteroscopy was performed using sterile saline as a distention medium. Findings are as noted above. Sharp curettage was then performed, and endometrial curettings were collected on a Telfa pad and passed off to be sent to pathology. Finally, the the Maureen device was advanced and endometrial ablation commenced without difficulty. The device was withdrawn and a second look was taken using the hysteroscope. Excellent coverage of the endometrial cavity was noted. The tenaculum was removed. Hemostasis was excellent. Sponge, lap, needle and instrument counts were correct. The patient was awakened and taken to the recovery room in stable condition. I was present and scrubbed through the entire procedure. Implants: Falope rings Anesthesia: GETA and local (1% lidocaine) Surgeon: Jamie Hernandez MD Estimated blood loss (mL): 5 Drains: No Packing: No Pathology: yes (endometrial curettings) Complications: None Condition: stable Disposition: PACU Findings: On laparoscopy, right upper quadrant anatomy was unremarkable. The vermiform appendix was normal-appearing. The uterus, tubes, ovaries, bilateral round and uterosacral ligaments were unremarkable. The anterior cul-de-sac demonstrated some adhesions from prior cesareans. The posterior cul-de-sac was unremarkable. On hysteroscopy the endometrial cavity was unremarkable. Both tubal ostia were seen. The uterus sounded to a depth of 7.5 cm with a cervical length of 3 cm, giving a subtracted uterine cavity length of 4.5 cm.
[2020-08-09] MEDS: fentaNYL CITRATE INJ (*CRX) 100 MCG/2 ML VIAL 25 MCG IV PUSH ×2 (13:23→13:41)
--- NOTE | 2020-08-09 13:25 | SUR.PHASEI ---
O2 removed at 1325.
[2020-08-09] MEDS: oxyCODONE HCL (*CRX) 5 MG TAB IR PO (14:11)
== END 2020-08-09 15:21 | disposition home or self-care (01) ==
PROVIDERS: Anesthesiology; PCP Family Medicine; Visit Provider Obstetrics & Gynecology
PROC: 0U5B8ZZ Destruction of Endometrium, Via Natural or Artificial Opening Endoscopic (ICD-10-PCS; CPT 58563; principal; 2020-08-09 12:00)
PROC: (CPT 58671; 2020-08-09 12:00)
DX: N92.1 Excessive and frequent menstruation with irregular cycle (principal); Z30.2 Encounter for sterilization
CPT/HCPCS: 58671; 58563; 36415; 85014; 85018; 88305; A4264; A9270; J0330; J1100; J2250; J2405; J2704; J3010; J7030; J7120

== ENCOUNTER → 2020-10-02 13:19 | Outpatient (CLI) | payer BC, SELFPAY ==
--- NOTE | ~2020-10-02 | MM_ITS ---
EXAMINATION: MM screening [facility] BI w rusty HISTORY: Screening mammogram TECHNIQUE: Craniocaudal and mediolateral oblique 3-D tomosynthesis images were obtained and synthetic 2-D images were generated. CAD analysis was submitted and interpreted. COMPARISON: 10/01/2019, 06/16/2018, 09/09/2017, 08/11/2017 BREAST PARENCHYMAL COMPOSITION: There are scattered areas of fibroglandular density. FINDINGS: There is no evidence of suspicious mass, calcification, or architectural distortion to sugg est malignancy in either breast. There has been no suspicious interval change. IMPRESSION: 1. No mammographic evidence of malignancy. 2. Recommend routine screening mammography in one year. BI-RADS Category 1: Negative Reviewed, dictated and finalized at location A.
== END ==
PROVIDERS: PCP Family Medicine; Visit Provider Obstetrics & Gynecology
DX: Z12.31 Encounter for screening mammogram for malignant neoplasm of breast (principal)
CPT/HCPCS: 77063; 77067

== ENCOUNTER → 2021-02-09 02:32 | Outpatient (CLI) | payer BC, SELFPAY ==
[2021-02-09 16:36] LABS: SARS-CoV-2 RNA PCR Negative
== END ==
PROVIDERS: PCP Family Medicine; Visit Provider Family Medicine
DX: R68.89 Other general symptoms and signs (principal); Z20.822 Contact with and (suspected) exposure to COVID-19
CPT/HCPCS: C9803; U0003; U0005

== ENCOUNTER → 2021-02-27 09:38 | Outpatient (CLI) | payer BC, SELFPAY ==
--- NOTE | ~2021-02-27 | XR_ITS ---
EXAMINATION: XR ankle LT min 3V DATE: 02/27/2021 10:57 INDICATION: Left ankle pain TECHNIQUE: Anteroposterior, lateral, mortise, and additional oblique view of the ankle were obtained. COMPARISON: None. FINDINGS: There is no fracture, dislocation, or subluxation. The bones, soft tissues, and joint spaces are norm al. IMPRESSION: 1. No acute osseous abnormality. Reviewed, dictated and finalized at location A. [place] LOSS PREVENTION OFFICER
== END ==
PROVIDERS: PCP Family Medicine; Visit Provider Family Medicine
DX: M25.572 Pain in left ankle and joints of left foot (principal)
CPT/HCPCS: 73610

== ENCOUNTER 2021-07-29 08:19 | Outpatient (CLI) | payer BC, SELFPAY ==
--- NOTE | ~2021-07-29 | MR_ITS ---
EXAMINATION: MR brain/brain stem wo con DATE: 07/31/2021 14:30 CDT INDICATION: Headache TECHNIQUE: Magnetic resonance imaging (MRI) of the brain and brainstem was performed without intraven ous contrast. Sequences included sagittal and axial T1-weighted SE, axial diffusion-weighted FS SE, a xial T2*-weighted GRE, axial T2-weighted FLAIR Propeller, and axial T2-weighted Propeller. Apparent d iffusion coefficient (ADC) maps were created. COMPARISON: No prior studies for comparison. FINDINGS: The brain volume and ventricular system are within normal limits. The brain parenchymal si gnal intensity pattern and darden/white matter is normal and there is no evidence of hemorrhage, space occupying masses or infarctions. The flow signal voids of the major arterial structures about the [place] and within the lou r dural venous sinuses appear grossly unremarkable and patent. The seventh and eighth cranial nerve complexes are normal. The mid sagittal image demonstrates a normal craniovertebral junction and sandra us callosum. The paranasal sinuses are grossly unremarkable. IMPRESSION: 1: Unremarkable MRI of the brain. Reviewed, dictated and finalized at location A.
== END 2021-07-29 08:20 | disposition home or self-care (01) ==
PROVIDERS: PCP Family Medicine; Visit Provider Family Medicine
DX: R51.9 Headache, unspecified (principal); R42 Dizziness and giddiness; G89.29 Other chronic pain
CPT/HCPCS: 70551

== ENCOUNTER → 2021-11-23 11:43 | Outpatient (CLI) | payer BC, SELFPAY ==
--- NOTE | ~2021-11-23 | MM_ITS ---
EXAMINATION: MM screening [facility] BI w rusty HISTORY: Screening mammogram TECHNIQUE: Craniocaudal and mediolateral oblique 3-D tomosynthesis images were obtained and synthetic 2-D images were generated. CAD analysis was submitted and interpreted. COMPARISON: 10/02/2020, 10/01/2019, 06/16/2018, 09/09/2017, 08/11/2017 BREAST PARENCHYMAL COMPOSITION: There are scattered areas of fibroglandular density. FINDINGS: RIGHT BREAST: There is no suspicious mass, calcification, or architectural distortion to suggest tita gnancy. There has been no significant interval change. LEFT BREAST: There is a possible mass in the anterior third of the lower inner breast 6 cm from the n ipple. IMPRESSION: 1. Possible left breast mass. 2. Additional mammographic views and possible breast ultrasound are recommended. BI-RADS Category 0: Incomplete: Needs additional imaging evaluation. Reviewed, dictated and finalized at location A. IMPRESSION: 1. Possible left breast mass. 2. Additional mammographic views and possible breast ultrasound are recommended . BI-RADS Category 0: Incomplete: Needs additional imaging evaluation.
== END ==
PROVIDERS: PCP Family Medicine; Visit Provider Obstetrics & Gynecology
DX: Z12.31 Encounter for screening mammogram for malignant neoplasm of breast (principal); R92.8 Other abnormal and inconclusive findings on diagnostic imaging of breast
CPT/HCPCS: 77063; 77067

== ENCOUNTER → 2021-12-25 08:18 | Outpatient (CLI) | payer BC, SELFPAY ==
--- NOTE | ~2021-12-25 | MMUS_ITS ---
EXAMINATION: MM diagnostic [facility] LT w rusty, US breast LT limited HISTORY: Possible left breast masses on screening mammogram TECHNIQUE: Additional 3-D tomosynthesis images of the left breast were performed and synthetic 2-D im ages were generated. CAD analysis was submitted and interpreted. High resolution limited left breast ultrasound was performed. COMPARISON: 11/23/2021, 10/02/2020, 10/01/2019 BREAST PARENCHYMAL COMPOSITION: There are scattered areas of fibroglandular density. FINDINGS: MAMMOGRAPHIC FINDINGS: There is an 8 mm oval, obscured, equal density mass at the 7:00 location in the middle third of the b reast 4.5 cm from the nipple. ULTRASOUND: There is a 7 mm complex cystic and solid mass at the 7:00 location 4 cm from the nipple with no poste rior features or internal vascularity. IMPRESSION: 1. Indeterminate left breast mass. 2. Ultrasound-guided biopsy is recommended. BI-RADS category 4, suspicious findings. Reviewed, dictated and finalized at location A. IMPRESSION: 1. Indeterminate left breast mass. 2. Ultrasound-guided biopsy is recommended. BI-RADS category 4, suspicious findings.
== END ==
PROVIDERS: PCP Family Medicine; Visit Provider Obstetrics & Gynecology
DX: R92.8 Other abnormal and inconclusive findings on diagnostic imaging of breast (principal)
CPT/HCPCS: 76642; 77061; 77065; G0279

== ENCOUNTER 2022-08-05 12:39 | Outpatient (CLI) | payer BC, SELFPAY ==
[2022-08-05 13:14] LABS: Strep Group A RT-PCR DETECTED (Negative)
[2022-08-05 13:28] LABS: SARS-CoV-2 RNA PCR Negative (Negative)
== END 2022-08-05 12:40 | disposition home or self-care (01) ==
PROVIDERS: PCP Family Medicine; Visit Provider Physician Assistant
DX: R50.9 Fever, unspecified (principal); Z20.822 Contact with and (suspected) exposure to COVID-19
CPT/HCPCS: 87635; 87651; U0005

== ENCOUNTER 2022-10-09 01:38 | Day surgery (SDC) | payer BC, SELFPAY ==
[2022-10-01 12:56] VITALS: BMI 27.4
--- NOTE | 2022-10-08 21:07 | PM.HPGS ---
History of Present Illness History of Present Illness Consent: Risks, benefits, and alternatives have been discussed and questions answered. Patient agrees to proceed with procedure. Chief complaint: neoplasm screening Narrative: Marlys Zheng is a 46 year old female who is referred for colon cancer screening. Review of Systems Review of Systems: All systems reviewed & are unremarkable except as noted in HPI and below PMFSH Past Medical History Medical History Adjustment insomnia Anaphylactic reaction due to other fish, subsequent encounter delivery delivered x 2 Fracture of rib of left side HTN (hypertension) Surgical History Surgical History H/O tubal ligation History of delivery History of D&C History of hysteroscopy History of knee surgery Family History Family History Father Diabetes mellitus Hypertension MRSA (methicillin resistant Staphylococcus aureus) Mother H/O: hysterectomy Cholecystectomy planned Sibling Hypothyroidism Grandparent Acute myocardial infarction Cerebrovascular accident Grandparent Lung cancer Grandparent Heart disease Social History Social History Smoking status: Never smoker Second hand tobacco smoke exposure: No Alcohol intake: current Drinks per week: 7 Alcohol use details: occasional Substance use: never Substance use type: does not use Living arrangements: with family Occupation/Education: occupation Gender identity (if verbalized by the patient): Female Spiritual care concerns: No Meds Home Medications and Allergies Home Medications Medication Instructions Recorded Confirmed Type calcium carbonate 500 mg-vitamin 1 tablet PO DAILY 05/18/19 10/09/22 History D3 5 mcg (200 unit) tablet (Calcium 500 + D) albuterol sulfate 90 mcg/actuation 1 puff inhalation Q4-6H PRN 11/15/21 10/09/22 Rx aerosol inhaler shortness of breath or wheezing #8.5 grams lisinopril 20 mg tablet 20 mg PO DAILY #90 tabs 07/23/22 10/09/22 Rx Allergies Allergy/AdvReac Type Severity Reaction Status Date / Time cobalt Allergy Severe Anaphylactic Verified 10/09/22 11:56 Shock iodine Allergy Severe Anaphylactic Verified 10/09/22 11:56 Shock mercury (elemental) Allergy Severe ANAPHAL. Verified 10/09/22 11:56 SHOCK aluminum Allergy Intermediate HIVES Verified 10/09/22 11:56 antiarthritic combination Allergy Unknown LOOKS Verified 10/09/22 11:56 no.1 LIKE I WAS [From [place]] BURNED camphor [From [place]] Allergy Unknown LOOKS Verified 10/09/22 11:56 LIKE I WAS BURNED menthol [From [place]] Allergy Unknown LOOKS Verified 10/09/22 11:56 LIKE I WAS BURNED methyl salicylate Allergy Unknown LOOKS Verified 10/09/22 11:56 [From [place]] LIKE I WAS BURNED nickel Allergy Unknown Rash Verified 10/09/22 11:56 SHELLFISH Allergy Unknown ANAPHALACTIC Uncoded 10/09/22 11:56 SHOCK Exam Const: General: alert Orientation/consciousness: patient oriented x3 Resp: Auscultation: clear to auscultation bilaterally Cardio: Rhythm: regular rhythm GI: GI Palp: Yes Soft to palpation and No Tenderness to palpation present (GI) Neuro: General: patient oriented x3 Assessment and Plan Assessment and plan (1) Colon cancer screening: Code(s): Z12.11 - Encounter for screening for malignant neoplasm of colon Status: Acute Assessment and Plan: Colonoscopy with possible biopsy or polypectomy or cautery or injection of substances.
[2022-10-09 11:58] VITALS: BP 136/82; PULSE 70; RESP 16; TEMP 36.4; O2SAT 100
[2022-10-09] MEDS: LACTATED RINGERS 1,000 ML 150 ML IV CONT (12:00)
--- NOTE | 2022-10-09 12:39 | WPDANESEPPF ---
Anes - Initial Pre Proc Eval Procedure: Operation Date: 10/09/22 13:15 Proposed Procedures p Screening Colonoscopy - Ho Don MD Date/Time: 10/09/22 12:39 Surgeon: Ho Don MD Pre Op Diagnosis: neoplasm screening Patient Data Age: 46 Gender: F Height: 1.7 m Weight: 83.6 kg Last Vital Signs Temp 97.5 F L 10/09/22 11:58 Pulse 70 10/09/22 11:58 Resp 16 10/09/22 11:58 BP 136/82 10/09/22 11:58 Pulse Ox 100 10/09/22 11:58 O2 Del Method Room Air 10/09/22 11:58 Allergies Allergy/AdvReac Type Severity Reaction Status Date / Time cobalt Allergy Severe Anaphylactic Verified 10/09/22 11:56 Shock iodine Allergy Severe Anaphylactic Verified 10/09/22 11:56 Shock mercury (elemental) Allergy Severe ANAPHAL. Verified 10/09/22 11:56 SHOCK aluminum Allergy Intermediate HIVES Verified 10/09/22 11:56 antiarthritic combination Allergy Unknown LOOKS Verified 10/09/22 11:56 no.1 LIKE I WAS [From [place]] BURNED camphor [From [place]] Allergy Unknown LOOKS Verified 10/09/22 11:56 LIKE I WAS BURNED menthol [From [place]] Allergy Unknown LOOKS Verified 10/09/22 11:56 LIKE I WAS BURNED methyl salicylate Allergy Unknown LOOKS Verified 10/09/22 11:56 [From [place]] LIKE I WAS BURNED nickel Allergy Unknown Rash Verified 10/09/22 11:56 SHELLFISH Allergy Unknown ANAPHALACTIC Uncoded 10/09/22 11:56 SHOCK Home Medications Medication Instructions Recorded Confirmed Type calcium carbonate 500 mg-vitamin 1 tablet PO DAILY 05/18/19 10/09/22 History D3 5 mcg (200 unit) tablet (Calcium 500 + D) albuterol sulfate 90 mcg/actuation 1 puff inhalation Q4-6H PRN 11/15/21 10/09/22 Rx aerosol inhaler shortness of breath or wheezing #8.5 grams lisinopril 20 mg tablet 20 mg PO DAILY #90 tabs 07/23/22 10/09/22 Rx Patient hx anesthesia problems: none Family hx anesthesia problems: none Results Review: All pre-operative results and documents have been reviewed as part of the pre-operative evaluation. [facility] Past Medical History Medical History Adjustment insomnia Anaphylactic reaction due to other fish, subsequent encounter delivery delivered x 2 Fracture of rib of left side HTN (hypertension) Surgical History Surgical History H/O tubal ligation History of delivery History of D&C History of hysteroscopy History of knee surgery Family History Family History Father Diabetes mellitus Hypertension MRSA (methicillin resistant Staphylococcus aureus) Mother H/O: hysterectomy Cholecystectomy planned Sibling Hypothyroidism Grandparent Acute myocardial infarction Cerebrovascular accident Grandparent Lung cancer Grandparent Heart disease Social History Social History Smoking status: Never smoker Second hand tobacco smoke exposure: No Alcohol intake: current Drinks per week: 7 Alcohol use details: occasional Substance use: never Substance use type: does not use Living arrangements: with family Occupation/Education: occupation Gender identity (if verbalized by the patient): Female Spiritual care concerns: No Anes - Eval Final PreProcedure Day of Procedure 10/09/22 12:39 Patient weight: normal Heart: regular rate and rhythm Lungs: clear to auscultation Airway: Mallampati scale class II Neurological: alert and oriented Last oral intake: >/= 8 hours ASA classification: II Emergent: no Anesthetic plan: proceed Anesthesia type and monitoring: general GIVS and standard monitoring Results Review: All pre-operative results and documents have been reviewed as part of the pre-operative evaluation. Informed Consent: The patient's anesthet
[2022-10-09 13:19] VITALS: BP 125/69; PULSE 70; RESP 23; O2SAT 100
[2022-10-09 13:29] VITALS: BP 120/86; PULSE 65; RESP 20; O2SAT 100
[2022-10-09 13:39] VITALS: BP 126/90; PULSE 59; RESP 16; O2SAT 99
== END 2022-10-09 13:49 | disposition home or self-care (01) ==
PROVIDERS: PCP Family Medicine; Visit Provider Internal Medicine Gastroenterology
PROC: 0DJD8ZZ Inspection of Lower Intestinal Tract, Via Natural or Artificial Opening Endoscopic (ICD-10-PCS; CPT 45378; principal; 2022-10-09 13:15)
DX: Z12.11 Encounter for screening for malignant neoplasm of colon (principal); D12.5 Benign neoplasm of sigmoid colon; K64.8 Other hemorrhoids; I10 Essential (primary) hypertension; Z79.51 Long term (current) use of inhaled steroids
CPT/HCPCS: 45385; 88305; J2704; J7120

== ENCOUNTER → 2022-12-16 11:02 | Outpatient (CLI) | payer BC, SELFPAY ==
--- NOTE | ~2022-12-16 | XR_ITS ---
EXAMINATION: XR chest 2V 12/16/2022 11:54 INDICATION: Cough PROCEDURE: 2 view chest COMPARISON: No prior studies for comparison. FINDINGS: The lungs are clear. The cardiomediastinal silhouette is within normal limits. There are no pleural effusions. There is no pneumothorax suspected. IMPRESSION: 1: NO ACUTE CARDIOPULMONARY DISEASE. Reviewed, dictated and finalized at location B.
== END ==
PROVIDERS: PCP Physician Assistant; Visit Provider Physician Assistant
DX: R05.9 Cough, unspecified (principal)
CPT/HCPCS: 71046

== ENCOUNTER → 2022-12-24 11:52 | Outpatient (CLI) | payer BC, SELFPAY ==
--- NOTE | ~2022-12-24 | MM_ITS ---
EXAMINATION: MM screening cruzito BI w rusty HISTORY: Screening mammogram TECHNIQUE: Craniocaudal and mediolateral oblique 3-D tomosynthesis images were obtained and synthetic 2-D images were generated. CAD analysis was submitted and interpreted. COMPARISON: 12/25/2021, 11/23/2021, 10/02/2020, 10/01/2019 BREAST PARENCHYMAL COMPOSITION: There are scattered areas of fibroglandular density. FINDINGS: There has been interval biopsy of the previously described left breast mass. No suspicious mass, calcification, or architectural distortion are identified in either breast to suggest malignanc y. There has been no suspicious interval change. IMPRESSION: 1. No mammographic evidence of malignancy. 2. Recommend routine screening mammography in one year. BI-RADS Category 2: Benign finding(s). Reviewed, dictated and finalized at location A.
== END ==
PROVIDERS: PCP Obstetrics & Gynecology; Visit Provider Obstetrics & Gynecology
DX: Z12.31 Encounter for screening mammogram for malignant neoplasm of breast (principal)
CPT/HCPCS: 77063; 77067

== ENCOUNTER 2023-01-20 09:58 | Outpatient (CLI) | payer BC, SELFPAY ==
--- NOTE | 2023-01-21 12:55 | WPDPFTINT ---
PFT Procedure Performed PFT Procedure Performed Spirometry with Pre/Post Bronchodilator Plethysmography (Lung Vol) Diffusing Cap (DLCO) Flow Vol Loop PFT Interpretation This is a pulmonary function test with pre and post-bronchodilator spirometry, plethysmography and diffusing capacity. The test was performed and results interpreted in accordance with the 2019 and 2005 ATS/ERS Task Force guidelines respectively using the Global Lung Function Initiative-2012 reference equations. Patient demonstrated good effort and cooperation. Reproducibility criteria were met. The quality of the pre bronchodilator spirometry maneuver was Grade A and post bronchodilator spirometry maneuver was Grade A. Findings: Spirometry: The contour the inspiratory and expiratory flow tracing are normal. The pre bronchodilator FVC is 3.83 L, 97% predicted. The pre bronchodilator FEV1 is 3.17 L, 100% predicted. The pre bronchodilator FEV1: FVC ratio was 83%. The post bronchodilator FVC is 3.96 L, representing a 3% increase. The post bronchodilator FEV1 is 3.44 L, representing a 9% increase. The post bronchodilator FEV1: FVC ratio was 87%. Plethysmography: The total lung capacity is 4.43 L, 81% predicted. The functional residual capacity is 1.56 L, 51% predicted. The residual volume is 0.60 L, 32% predicted. Diffusing capacity: The diffusing capacity unadjusted for hemoglobin and carboxyhemoglobin is 24.7, 101% predicted. The diffusing capacity adjusted for alveolar volume is 4.79, 106% predicted. Impression: The spirometry is normal without evidence of an obstructive abnormality. There is no significant improvement after inhaling a single dose of albuterol. The total lung capacity is normal with a decreased functional residual capacity and residual volume. This is an abnormal but nonspecific lung volume pattern. The diffusing capacity is normal. There are no prior studies for comparison
== END 2023-01-20 09:59 | disposition home or self-care (01) ==
PROVIDERS: PCP Obstetrics & Gynecology; Visit Provider Physician Assistant
DX: R05.9 Cough, unspecified (principal); R06.02 Shortness of breath
CPT/HCPCS: 94060; 94726; 94729

== ENCOUNTER 2023-03-21 19:15 | Emergency (ER) | payer BC, SELFPAY ==
[2023-03-21] VITALS (21 sets, daily range): BP systolic 104–155; BP diastolic 67–113; PULSE 82–110; RESP 16–27; O2SAT 95–100
--- NOTE | ~2023-03-21 | XR_ITS ---
EXAMINATION: XR chest 1V portable DATE: 03/21/2023 19:44 INDICATION: Dyspnea TECHNIQUE: frontal view of the chest was obtained. COMPARISON: Chest radiograph dated 12/16/2022 FINDINGS: The lungs remain clear with no focal airspace opacities, pulmonary edema, pleural effusion or pneumot horax. The cardiomediastinal silhouette is normal. Visualized bones and soft tissues are unremarkable . IMPRESSION: 1. No acute cardiopulmonary disease. Reviewed, dictated and finalized at location A. N RESOURCE ANALYST
--- NOTE | 2023-03-21 19:24 | ECG_ITS ---
Measurements Intervals [place] Rate: 83 P: 31 WV: 141 QRS: -8 QRSD: 82 T: 15 QT: 349 QTc: 411 Interpretive Statements SINUS RHYTHM MINIMAL VOLTAGE CRITERIA FOR LVH, CONSIDER NORMAL VARIANT [MEETS CRITERIA IN ONE OF: R(aVL), S(V1), R(V5), R(V5/V6)+S(V1)] NO PREVIOUS ECG AVAILABLE FOR COMPARISON Electronically Signed On 03-23-2023 14:20:56 PET SITTER by Bright Solomon M.D.
[2023-03-21] MEDS: diphenhydrAMINE HCl INJ 50 MG/ML VIAL IV PUSH (19:30)
[2023-03-21] MEDS: methylPREDNISolone SOD SUCC 125 MG VIAL IV PUSH (19:30)
[2023-03-21 19:31] LABS: Basophils Absolute Auto 0.1 K/mm3 (0.0-0.1); Basophils Percent Auto 0.4 % (0.2-1.2); Eosinophils Absolute Auto 0.2 K/mm3 (0-0.3); Eosinophils Percent Auto 1.6 % (0-4.4); Hematocrit 43.3 % (37.0-47.0); Hemoglobin 14.3 g/dL (12.0-15.0); Immature Granulocyte Absolute 0.05 K/mm3 (0.00-0.031); Immature Granulocyte Percent A 0.4 % (0-0.5); Lymphocytes Absolute Auto 3.59 K/mm3 (0.9-3.2); Lymphocytes Percent Auto 26.1 % (18.3-44.2); Mean Corpuscular Hemoglobin 29.2 pg (26-34); Mean Corpuscular Volume 88.4 fl (80-100); Monocytes Absolute Auto 0.7 K/mm3 (0.1-0.6); Monocytes Percent Auto 4.9 % (2.6-8.5); Neutrophils Absolute Auto 9.2 K/mm3 (1.3-6.7); Neutrophils Percent Auto 66.6 % (45.5-73.1); Platelet Count Result 362 k/mm3 (150-375); Red Cell Distribution Width 12.5 % (11.5-14.5); White Blood Count 13.7 K/mm3 (4.5-10.0)
[2023-03-21] MEDS: EPINEPHrine HCL INJ 1 MG/ML AMPUL 0.3 MG IM (19:31)
[2023-03-21] MEDS: FAMOTIDINE 20 MG/2 ML VIAL IV PUSH (19:31)
[2023-03-21 19:44] LABS: Alanine Aminotransferase 23 U/L (6-35); Albumin Level 4.6 g/dL (3.5-5.1); Alkaline Phosphatase 94 U/L (38-126); Anion Gap 11 mmol/L (8-16); Aspartate Amino Transferase 39 U/L (14-36); Bilirubin,Total 0.8 mg/dL (0.2-1.3); Blood Urea Nitrogen 19 mg/dL (7-17); Calcium 9.3 mg/dL (8.4-10.2); Carbon Dioxide 21 mmol/L (22-30); Chloride 106 mmol/L (98-107); Estimated CRCL calculation 109 ml/min; Estimated Glomerular Filt Rate > 60; Glucose 120 mg/dL (65-110); Potassium 4.3 mmol/L (3.4-5.0); Sodium 138 mmol/L (137-145)
--- NOTE | 2023-03-21 21:01 | ED.GENADULT ---
HPI - General Adult General Chief complaint: Allergic Reaction Stated complaint: allergic reaction Time Seen by Provider: 03/21/23 19:24 History of Present Illness HPI narrative: Patient is a 47-year-old female that presents emergency department with chief complaint of allergic reaction. Patient reports that she has had anaphylactic reactions before in the past and has actually required a epinephrine drip and hospitalization patient states that today she started having urticaria and had swelling of her lips. Patient states she was feeling a little lightheaded felt the social little tight to breathe the patient states that she took 3 doses of Benadryl throughout the day and still continues to have symptoms. The patient does have an EpiPen but it did not use it at home. Related Data Home Medications Medication Instructions Recorded Confirmed calcium carbonate 500 mg-vitamin 1 tablet PO DAILY 05/18/19 12/16/22 D3 5 mcg (200 unit) tablet (Calcium 500 + D) Allergies Allergy/AdvReac Type Severity Reaction Status Date / Time cobalt Allergy Severe Anaphylactic Verified 03/21/23 19:16 Shock iodine Allergy Severe Anaphylactic Verified 03/21/23 19:16 Shock mercury (elemental) Allergy Severe ANAPHAL. Verified 03/21/23 19:16 SHOCK aluminum Allergy Intermediate HIVES Verified 03/21/23 19:16 antiarthritic combination Allergy Unknown LOOKS Verified 03/21/23 19:16 no.1 LIKE I WAS [From [place]] BURNED camphor [From [place]] Allergy Unknown LOOKS Verified 03/21/23 19:16 LIKE I WAS BURNED menthol [From [place]] Allergy Unknown LOOKS Verified 03/21/23 19:16 LIKE I WAS BURNED methyl salicylate Allergy Unknown LOOKS Verified 03/21/23 19:16 [From [place]] LIKE I WAS BURNED nickel Allergy Unknown Rash Verified 03/21/23 19:16 SHELLFISH Allergy Unknown ANAPHALACTIC Uncoded 03/21/23 19:16 SHOCK Review of Systems Review of Systems: A 10 system review of systems was completed on the patient and is negative except for what is stated in the HPI. Nursing and ancillary documentation was reviewed. [facility] Past Medical History Medical History Adjustment insomnia Anaphylactic reaction due to other fish, subsequent encounter delivery delivered x 2 Fracture of rib of left side HTN (hypertension) Surgical History Surgical History H/O tubal ligation History of delivery History of D&C History of hysteroscopy History of knee surgery History of tonsillectomy Family History Family History Father Diabetes mellitus Hypertension MRSA (methicillin resistant Staphylococcus aureus) Mother H/O: hysterectomy Cholecystectomy planned Sibling Hypothyroidism Grandparent Acute myocardial infarction Cerebrovascular accident Grandparent Lung cancer Grandparent Heart disease Social History Social History Smoking status: Never smoker Second hand tobacco smoke exposure: No Alcohol intake: current Drinks per week: 7 Alcohol use details: occasional Substance use: never Substance use type: does not use Living arrangements: with family Occupation/Education: occupation Gender identity (if verbalized by the patient): Female Spiritual care concerns: No Exam Narrative: GENERAL: Well-appearing, well-nourished, and in no acute distress. HEAD: Normocephalic, atraumatic. EYES: PERRLA and EOMI. ENT: Nares clear, no rhinorrhea or epistaxis. Mucous membranes moist. Angioedema of the left NECK: Supple. CHEST: Clear to auscultation. No respiratory distress. HEART: Regular rate and rhythm. No murmur heard. Normal peripheral pulses. ABDOMEN: Soft, nontender, nondistended, normal
== END 2023-03-21 23:59 | disposition home or self-care (01) ==
PROVIDERS: Emergency Provider Emergency Medicine; PCP Family Medicine
DX: T78.40XA Allergy, unspecified, initial encounter (principal); L50.0 Allergic urticaria; I10 Essential (primary) hypertension; X58.XXXA Exposure to other specified factors, initial encounter
CPT/HCPCS: 36415; 71045; 80053; 85025; 93005; 96372; 96374; 96375; 99284; J0171; J1200; J2930

== ENCOUNTER 2023-03-23 16:59 | Emergency (ER) | payer BC, SELFPAY ==
[2023-03-23 17:08] VITALS: BP 155/100; PULSE 102; RESP 16; TEMP 37.3; O2SAT 100
[2023-03-23 17:20] VITALS: RESP 22; O2SAT 98
--- NOTE | 2023-03-23 17:23 | ED.ALLEREA ---
HPI - Allergic Reaction General Chief complaint: Allergic Reaction Stated complaint: allergic reaction Time Seen by Provider: 03/23/23 17:15 Source: patient Mode of arrival: ambulatory Limitations: no limitations History of Present Illness HPI narrative: Marlys is a 47-year-old female patient presenting to clinic today with complaints of possible allergic reaction. She reports she is feeling short of breath and has hives. States she took her EpiPen 45 minutes prior to coming into the clinic today. Has taken Benadryl, prednisone, and Pepcid today. Also has used her albuterol inhaler for shortness of breath. Has multiple allergies to metals and elements. States she was in the ER on Friday for angioedema an allergic reaction. Related Data Home Medications Medication Instructions Recorded Confirmed calcium carbonate 500 mg-vitamin 1 tablet PO DAILY 05/18/19 12/16/22 D3 5 mcg (200 unit) tablet (Calcium 500 + D) Allergies Allergy/AdvReac Type Severity Reaction Status Date / Time cobalt Allergy Severe Anaphylactic Verified 03/21/23 19:16 Shock iodine Allergy Severe Anaphylactic Verified 03/21/23 19:16 Shock mercury (elemental) Allergy Severe ANAPHAL. Verified 03/21/23 19:16 SHOCK aluminum Allergy Intermediate HIVES Verified 03/21/23 19:16 antiarthritic combination Allergy Unknown LOOKS Verified 03/21/23 19:16 no.1 LIKE I WAS [From [place]] BURNED camphor [From [place]] Allergy Unknown LOOKS Verified 03/21/23 19:16 LIKE I WAS BURNED menthol [From [place]] Allergy Unknown LOOKS Verified 03/21/23 19:16 LIKE I WAS BURNED methyl salicylate Allergy Unknown LOOKS Verified 03/21/23 19:16 [From [place]] LIKE I WAS BURNED nickel Allergy Unknown Rash Verified 03/21/23 19:16 SHELLFISH Allergy Unknown ANAPHALACTIC Uncoded 03/21/23 19:16 SHOCK Review of Systems Review of Systems: Pertinent positives per HPI. Patient denies any fever, chills,headache, visual changes, dizziness, cough, chest pain, palpitations, nausea, vomiting, diarrhea, constipation, abdominal pain, or any urinary issues. PMFSH Past Medical History Medical History Adjustment insomnia Anaphylactic reaction due to other fish, subsequent encounter delivery delivered x 2 Fracture of rib of left side HTN (hypertension) Surgical History Surgical History H/O tubal ligation History of delivery History of D&C History of hysteroscopy History of knee surgery History of tonsillectomy Family History Family History Father Diabetes mellitus Hypertension MRSA (methicillin resistant Staphylococcus aureus) Mother H/O: hysterectomy Cholecystectomy planned Sibling Hypothyroidism Grandparent Acute myocardial infarction Cerebrovascular accident Grandparent Lung cancer Grandparent Heart disease Social History Social History Smoking status: Never smoker Second hand tobacco smoke exposure: No Alcohol intake: current Drinks per week: 7 Alcohol use details: occasional Substance use: never Substance use type: does not use Living arrangements: with family Occupation/Education: occupation Gender identity (if verbalized by the patient): Female Spiritual care concerns: No Comments At the time of my signature, I reviewed and agree with the nursing past medical, surgical, social, and family history. There is no relevant family history pertinent to the patient complaint. Exam Narrative: General: Well-developed, well nourished, in no apparent distress Head: Normocephalic, atraumatic Eyes: Pupils equally round and reactive to light bilaterally, EOM intact, sclera and conjunctive clear, no discharge, lid
== END 2023-03-23 17:20 | disposition short-term general hospital (02) ==
PROVIDERS: Emergency Provider Nurse Practitioner Family; PCP Family Medicine
DX: L50.0 Allergic urticaria (principal); R06.02 Shortness of breath; I10 Essential (primary) hypertension
CPT/HCPCS: 99215; G0463

== ENCOUNTER 2023-03-23 17:32 | Emergency (ER) | payer BC, SELFPAY ==
[2023-03-23 17:35] VITALS: BP 129/93; PULSE 96; RESP 18; TEMP 36.6; O2SAT 100
[2023-03-23] MEDS: FAMOTIDINE 20 MG/2 ML VIAL IV PUSH (18:31)
[2023-03-23] MEDS: methylPREDNISolone SOD SUCC 125 MG VIAL IV PUSH (18:31)
[2023-03-23] MEDS: diphenhydrAMINE HCl INJ 50 MG/ML VIAL IV PUSH ×2 (18:31→22:02)
[2023-03-23] MEDS: SODIUM CHLORIDE 0.9% IV 1,000 ML 999 ML IV CONT (18:32)
--- NOTE | 2023-03-23 18:57 | ED.ALLEREA ---
HPI - Allergic Reaction General Chief complaint: Allergic Reaction <Dylon Cho MD - Last Filed: 03/24/23 07:18> Stated complaint: allergic reaction <Dylon Cho MD - Last Filed: 03/24/23 07:18> Time Seen by Provider: 03/23/23 17:32 <Dylon Cho MD - Last Filed: 03/24/23 07:18> History of Present Illness HPI narrative: 47-year-old female with significant history of allergic reactions presented the emergency department for a persistent allergic reaction. Patient was seen in the emergency department on Friday and was started on prednisone and was treated with epinephrine while in the emergency department. Patient states that her hives have been persistent. Patient felt that she is having some swelling of her throat today and patient treated herself with her EpiPen. Patient then went to the urgent care and was transferred to the emergency department for evaluation. Upon arrival the emergency department patient states that she does feel that her tongue is tingling but patient has no facial swelling patient's lungs are clear to auscultation and patient appears to be in no distress. Patient does have multiple allergies to metals and elements. <Dylon Cho MD - Last Filed: 03/24/23 07:18> Related Data Home medications: Home Medications Medication Instructions Recorded Confirmed calcium carbonate 500 mg-vitamin 1 tablet PO DAILY 05/18/19 12/16/22 D3 5 mcg (200 unit) tablet (Calcium 500 + D) <Dylon Cho MD - Last Filed: 03/24/23 07:18> Allergies/adverse reactions: Allergies Allergy/AdvReac Type Severity Reaction Status Date / Time cobalt Allergy Severe Anaphylactic Verified 03/21/23 19:16 Shock iodine Allergy Severe Anaphylactic Verified 03/21/23 19:16 Shock mercury (elemental) Allergy Severe ANAPHAL. Verified 03/21/23 19:16 SHOCK aluminum Allergy Intermediate HIVES Verified 03/21/23 19:16 antiarthritic combination Allergy Unknown LOOKS Verified 03/21/23 19:16 no.1 LIKE I WAS [From [place]] BURNED camphor [From [facility] [place]] Allergy Unknown LOOKS Verified 03/21/23 19:16 LIKE I WAS BURNED menthol [From [facility] [place]] Allergy Unknown LOOKS Verified 03/21/23 19:16 LIKE I WAS BURNED methyl salicylate Allergy Unknown LOOKS Verified 03/21/23 19:16 [From [facility] [place]] LIKE I WAS BURNED nickel Allergy Unknown Rash Verified 03/21/23 19:16 SHELLFISH Allergy Unknown ANAPHALACTIC Uncoded 03/21/23 19:16 SHOCK <Dylon Cho MD - Last Filed: 03/24/23 07:18> Review of Systems Review of Systems: All systems reviewed & are unremarkable except as noted in HPI and below <Dylon Cho MD - Last Filed: 03/24/23 07:18> [facility] Past Medical History Medical History: Medical History Adjustment insomnia Anaphylactic reaction due to other fish, subsequent encounter delivery delivered x 2 Fracture of rib of left side HTN (hypertension) <Dylon Cho MD - Last Filed: 03/24/23 07:18> Surgical History Surgical History: Surgical History H/O tubal ligation History of delivery History of D&C History of hysteroscopy History of knee surgery History of tonsillectomy <Dylon Cho MD - Last Filed: 03/24/23 07:18> Family History Family History: Family History Father Diabetes mellitus Hypertension MRSA (methicillin resistant Staphylococcus aureus) Mother H/O: hysterectomy Cholecystectomy planned Sibling Hypothyroidism Grandparent Acute myocardial infarction Cerebrovascular accident Grandparent Lung cancer Grandparent Heart disease <Dylon Cho MD - Last Filed: 03/24/23 07:18> Social History Social History: Social History (Reviewed 03/23/23 @ 17:26 by Estrada
[2023-03-23 19:00] VITALS: BP 113/64; PULSE 83; RESP 22; O2SAT 100
[2023-03-23 19:15] VITALS: BP 111/67; PULSE 81; RESP 22; O2SAT 100
--- NOTE | 2023-03-23 19:26 | PC.NURSE ---
THIS RN ASSUMED CARE OF PATIENT. THIS RN TOOK PATIENT REPORT FROM IRASEMA DELEON.
[2023-03-23] MEDS: ALBUTEROL SULFATE NEB 2.5 MG/3 ML INH INHALATION (19:46)
[2023-03-23 19:47] LABS: Basophils Percent Auto 0.2 % (0.2-1.2); Eosinophils Percent Auto 0.2 % (0-4.4); Hematocrit 39.3 % (37.0-47.0); Hemoglobin 12.4 g/dL (12.0-15.0); Immature Granulocyte Absolute 0.04 K/mm3 (0.00-0.031); Immature Granulocyte Percent A 0.4 % (0-0.5); Lymphocytes Percent Auto 18.5 % (18.3-44.2); Mean Corpuscular HGB Conc 31.6 g/dl (32-36); Mean Corpuscular Hemoglobin 29.4 pg (26-34); Mean Corpuscular Volume 93.1 fl (80-100); Monocytes Absolute Auto 0.6 K/mm3 (0.1-0.6); Monocytes Percent Auto 5.3 % (2.6-8.5); Neutrophils Absolute Auto 8.2 K/mm3 (1.3-6.7); Neutrophils Percent Auto 75.4 % (45.5-73.1); Platelet Count Result 367 k/mm3 (150-375); Red Blood Count 4.22 M/mm3 (4.2-5.4); Red Cell Distribution Width 13.1 % (11.5-14.5); White Blood Count 10.8 K/mm3 (4.5-10.0)
[2023-03-23 19:49] VITALS: PULSE 81; RESP 20
[2023-03-23 19:57] VITALS: PULSE 82; RESP 17
[2023-03-23 20:07] LABS: Alanine Aminotransferase 23 U/L (6-35); Albumin Level 3.8 g/dL (3.5-5.1); Alkaline Phosphatase 88 U/L (38-126); Anion Gap 9 mmol/L (8-16); Aspartate Amino Transferase 23 U/L (14-36); Bilirubin,Total 0.5 mg/dL (0.2-1.3); Blood Urea Nitrogen 23 mg/dL (7-17); Calcium 8.2 mg/dL (8.4-10.2); Carbon Dioxide 19 mmol/L (22-30); Chloride 109 mmol/L (98-107); Estimated CRCL calculation 115 ml/min; Estimated Glomerular Filt Rate > 60; Glucose 111 mg/dL (65-110); Potassium 3.9 mmol/L (3.4-5.0); Sodium 137 mmol/L (137-145)
[2023-03-23 22:10] VITALS: BP 117/72; PULSE 86; RESP 20; O2SAT 98
== END 2023-03-23 22:21 | disposition home or self-care (01) ==
PROVIDERS: Emergency Provider Emergency Medicine; PCP Family Medicine
DX: T78.40XA Allergy, unspecified, initial encounter (principal); I10 Essential (primary) hypertension
CPT/HCPCS: 36415; 80053; 85025; 94640; 96361; 96372; 96374; 96375; 96376; 99215; 99284; G0463; J1100; J1200; J2930; J7030

== ENCOUNTER 2023-09-15 13:41 | Outpatient (CLI) | payer BC, SELFPAY ==
--- NOTE | ~2023-09-15 | XR_ITS ---
EXAMINATION: XR shoulder LT min 2V DATE: 09/15/2023 13:54 INDICATION: Left shoulder pain. TECHNIQUE: 4 views of left shoulder were obtained. COMPARISON: None. FINDINGS: Bone alignment is normal. No fracture. The glenohumeral joint is normal. There is mild acro mioclavicular joint osteoarthritis. IMPRESSION: 1. Mild acromioclavicular joint osteoarthritis. Reviewed, dictated and finalized at location A.
== END 2023-09-15 13:42 | disposition home or self-care (01) ==
LOC: ANHIMG 13:45
PROVIDERS: PCP Family Medicine; Visit Provider Family Medicine
DX: M19.012 Primary osteoarthritis, left shoulder (principal)
CPT/HCPCS: 73030

== ENCOUNTER 2023-11-13 11:43 | Outpatient (CLI) | payer BC, SELFPAY ==
--- NOTE | ~2023-11-13 | MR_ITS ---
EXAMINATION: MR shoulder LT wo con DATE: 11/13/2023 12:29 INDICATION: Left shoulder pain TECHNIQUE: Magnetic resonance imaging (MRI) of the left shoulder was performed without intravenous co ntrast. Sequences included axial PD-weighted FS FSE, coronal oblique PD-weighted FS FSE, coronal obli que T2-weighted FS FSE, sagittal PD-weighted FS FSE, and sagittal T1-weighted SE. COMPARISON: None. FINDINGS: Coracoacromial arch: The acromion undersurface is minimally curved in morphology (type I-II). The coracoacromial ligament is normal. Acromioclavicular joint is normal. Rotator cuff: Mild supraspinatus tendinopathy without tear. The infraspinatus, teres minor and subscapularis tendon s are normal. Normal rotator cuff muscle bulk and signal. Biceps tendon, glenoid labrum and glenohumeral cartilage: Long head of the biceps tendon is normal. Glenoid labrum is normal. Glenohumeral cartilage is normal. Fluid: Physiologic amount of fluid in the glenohumeral joint and biceps tendon sheath. No loose osteochondr al bodies. Mild increased fluid signal in the subacromial/subdeltoid bursa consistent with mild bursi tis. Bones and other: Normal marrow signal with no edema, fracture or abnormal marrow replacing process. There is thickenin g of the capsule at the axillary recess and thickened soft tissue replacing the normal fat signal at the rotator cuff interval, both findings which can be seen with adhesive capsulitis which is a clinic al diagnosis. IMPRESSION: 1. Mild supraspinatus tendinopathy without tear. 2. Mild subacromial/subdeltoid bursitis. 2. Capsular thickening at the axillary recess and rotator cuff interval which can be seen in the sett ing of adhesive capsulitis which is a clinical diagnosis. Reviewed, dictated and finalized at location A. IMPRESSION: 1. Mild supraspinatus tendinopathy without tear. 2. Mild subacromial/subdeltoid bursitis. 2. Capsular thickening at the axillary recess and rotator cuff interval which c an be seen in the setting of adhesive capsulitis which is a clinical diagnosis.
== END 2023-11-13 11:44 | disposition home or self-care (01) ==
PROVIDERS: PCP Family Medicine; Visit Provider Orthopaedic Surgery
DX: M25.512 Pain in left shoulder (principal); M75.52 Bursitis of left shoulder
CPT/HCPCS: 73221

== ENCOUNTER 2023-12-29 11:20 | Outpatient (CLI) | payer BC, SELFPAY ==
--- NOTE | ~2023-12-29 | MM_ITS ---
EXAMINATION: MM screening cruzito BI w rusty HISTORY: Screening TECHNIQUE: Craniocaudal and mediolateral oblique 3-D tomosynthesis images were obtained and synthetic 2-D images were generated. CAD analysis was submitted and interpreted. COMPARISON: Comparison to multiple prior studies sequentially, with oldest reviewed study dated 08/2018. BREAST PARENCHYMAL COMPOSITION: Not dense: There are scattered areas of fibroglandular density. FINDINGS: The left breast is stable without evidence for malignancy. There is developing asymmetry in the lower inner quadrant of the right breast, middle third. IMPRESSION: 1. Developing right breast asymmetry. 2. Additional mammographic views and possible breast ultrasound are recommended. BI-RADS Category 0: Incomplete: Needs additional imaging evaluation. Reviewed, dictated and finalized at location B. IMPRESSION: 1. Developing right breast asymmetry. 2. Additional mammographic views and possible breast ultrasound are recommended . BI-RADS Category 0: Incomplete: Needs additional imaging evaluation.
== END 2023-12-29 11:21 | disposition home or self-care (01) ==
LOC: MICIMG 11:21
PROVIDERS: PCP Obstetrics & Gynecology; Visit Provider Obstetrics & Gynecology
DX: Z12.31 Encounter for screening mammogram for malignant neoplasm of breast (principal); R92.8 Other abnormal and inconclusive findings on diagnostic imaging of breast
CPT/HCPCS: 77063; 77067

== ENCOUNTER 2024-01-26 08:44 | Outpatient (CLI) | payer BC, SELFPAY ==
--- NOTE | ~2024-01-26 | MMUS_ITS ---
EXAMINATION: MM diagnostic cruzito RT w rusty, US breast RT limited HISTORY: Follow-up right breast asymmetry TECHNIQUE: Additional 3-D tomosynthesis images of the right breast were performed and synthetic 2-D i mages were generated. CAD analysis was submitted and interpreted. High resolution Limited right breas t ultrasound was performed. COMPARISON: Comparison to multiple prior studies sequentially, with oldest reviewed study dated 09/30. BREAST PARENCHYMAL COMPOSITION: Not dense: There are scattered areas of fibroglandular density. FINDINGS: MAMMOGRAPHIC FINDINGS: There is a focal asymmetry with irregular margins and central low density in the lower inner quadrant of the right breast, middle third. There are no suspicious calcifications. ULTRASOUND: Limited right breast ultrasound: At 3:00, 4 cm from the nipple there is an oval hypoechoic mass with parallel orientation, slightly irregular margins, thick internal septations, subtle posterior shadowi ng and no internal vascularity measuring 8 x 6 x 4 mm. At 3:00, 4 cm from the nipple there is a 5 mm cyst. At 5:00 in the subareolar location there is a round 3 mm cystic mass, likely benign. Six-month follow-up ultrasound recommended. IMPRESSION: 1. Complex septated cystic mass of the right breast at 3:00, 4 cm from the nipple. 2. Ultrasound-guided right breast biopsy recommended. BI-RADS category 4, suspicious findings. Reviewed, dictated and finalized at location B. ATTENDANT IMPRESSION: 1. Complex septated cystic mass of the right breast at 3:00, 4 cm from the nipp le. 2. Ultrasound-guided right breast biopsy recommended. BI-RADS category 4, suspicious findings.
== END 2024-01-26 08:45 | disposition home or self-care (01) ==
LOC: MICIMG 08:45
PROVIDERS: PCP Family Medicine; Visit Provider Obstetrics & Gynecology
DX: R92.8 Other abnormal and inconclusive findings on diagnostic imaging of breast (principal)
CPT/HCPCS: 76642; 77061; 77065; G0279

== ENCOUNTER 2025-01-24 08:43 | Outpatient (CLI) | payer BC, SELFPAY ==
--- OUTSIDE RECORDS SUMMARY | 2017-08-10 23:00 | XMS_ITS | Encounter Summary ---
Author Organization [facility] Healthcare Address [address] [place] [address] Care Team Providers Care Winder Hand Name Role Phone Unavailable Primary Care Provider Unavailabl e Reason for Visit * Diagnostic Imaging (Routine) - Closed Specialty Diagnoses / Procedures Referred By Contac t Referred To Contact Procedures Breast Imaging Screening Outside Reference Aft, Natalia Church MD PhD [address] [place] [phone] Phone: tel: fax: Referral ID Status Reason Start Date Expiration Date Visits Re quested Visits Authorized [id number] Closed 02/06/2022 03/08/2023 1 1 Encounter Details Date Type Department Care Team (Late st Contact Info) Description 08/11/2017 Hospital Encounter [facility] [address] [place] [phone] Social History Tobacco Use Types Packs/Day Years [...] on file Legal Sex Female 7:03 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 Monthly or less 07/28/2024 4:43 PM CDT Purvi Barrios RN Q2: How many drinks containing alcohol do you have on a typical day when you are drinking? 3 or 4 07/28/2024 4:43 PM CDT Karlee Barrios RN Q3: How often do you have six or more drinks on one occasion? Never 07/28/2024 4:43 PM CDT Purvi Barrios RN documented as of this encounter Plan of Treatment Not on file documented as of this encounter Procedures Procedure Name Priority Date/Time Associated Diagnosis Comments BREAST IMAGING MG SCREENING OUTSIDE REFERENCE Routine 08/11/2017 12:00 AM CDT documented in this encounter Results * Breast Imaging Screening Outside Reference (08/11/2017 12:00 AM CDT) Impressions [facility] - 02/06/2022 10:15 AM DRAGLINE OPERATOR HELPER These images are for Reference purposes only and have not been reviewed by [facility]. There will be no report generated by a [facility] Radiologist. Narrative [facility] - 02/06/2022 10:15 AM DRAGLINE OPERATOR HELPER EXAMINATION: Images For Reference Purposes Only us Natalia Aguilar MD PhD IMG MAMMO PROCEDURES Final Result [facility] documented in this encounter Visit Diagnoses Not on filedocumented in this encounter
--- OUTSIDE RECORDS SUMMARY | 2017-09-08 23:00 | XMS_ITS | Encounter Summary ---
Author Organization [facility] Healthcare Address [address] [place] [address] Care Team Providers Care Sales Support Technician Name Role Phone Unavailable Primary Care Provider Unavailabl e Reason for Visit * Diagnostic Imaging (Routine) - Closed Specialty Diagnoses / Procedures Referred By Contac t Referred To Contact Procedures Breast Imaging US Outside Reference Aft, Natalia Church MD PhD [address] [place] [address] Phone: tel: fax: Referral ID Status Reason Start Date Expiration Date Visits Re quested Visits Authorized [id number] Closed 02/06/2022 03/08/2023 1 1 Encounter Details Date Type Department Care Team (Late st Contact Info) Description 09/09/2017 Hospital Encounter [facility] [address] [place] [address] [phone] Social History Tobacco Use Types Packs/Day Years [...] on file Legal Sex 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 There will be no report generated by a [facility] Radiologist. Narrative [facility] - 02/06/2022 10:14 AM FUEL CELL TECHNICIAN EXAMINATION: Images For Reference Purposes Only us Natalia Aguilar MD PhD IMG MAMMO PROCEDURES Final Result [facility] documented in this encounter Visit Diagnoses Not on filedocumented in this encounter
--- OUTSIDE RECORDS SUMMARY | 2017-09-08 23:05 | XMS_ITS | Encounter Summary ---
Author Organization [facility] Healthcare Address [address] [place] [address] Care Team Providers Care Outpatient Therapist Name Role Phone Unavailable Primary Care Provider Unavailabl e Reason for Visit * Diagnostic Imaging (Routine) - Closed Specialty Diagnoses / Procedures Referred By Contac t Referred To Contact Procedures Breast Imaging Diagnostic Outside Reference Aft, Natalia Church MD PhD [address] [place] [address] Phone: tel: fax: Referral ID Status Reason Start Date Expiration Date Visits Re quested Visits Authorized [id number] Closed 02/06/2022 03/08/2023 1 1 Encounter Details Date Type Department Care Team (Late st Contact Info) Description 09/09/2017 12:05 AM CDT Hospital Encounter [facility] [address] [place] [phone] Social History Tobacco Use Types Packs/Day Years [...] on file Legal Sex Female 7: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 There will be no report generated by a [facility] Radiologist. Narrative [facility] - 02/06/2022 10:15 AM VALVE PIPE IRRIGATOR EXAMINATION: Images For Reference Purposes Only us Natalia Aguilar MD PhD IMG MAMMO PROCEDURES Final Result [facility] documented in this encounter Visit Diagnoses Not on filedocumented in this encounter
--- OUTSIDE RECORDS SUMMARY | 2018-06-15 23:00 | XMS_ITS | Encounter Summary ---
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 Name Role Phone Unavailable Primary Care Provider Unavailabl e Reason for Visit * Diagnostic Imaging (Routine) - Closed Specialty Diagnoses / Procedures Referred By Contac t Referred To Contact Procedures Breast Imaging Diagnostic Outside Reference Aft, Natalia Church MD PhD [address] [place] [id number] Phone: tel: fax: Referral ID Status Reason Start Date Expiration Date Visits Re quested Visits Authorized [id number] Closed 02/06/2022 03/08/2023 1 1 Encounter Details Date Type Department Care Team (Late st Contact Info) Description 06/16/2018 Hospital Encounter [facility] [address] [place] [address] [phone] Social History Tobacco Use Types Packs/Day Years [...] on file 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 There will be no report generated by a [facility] Radiologist. Narrative [facility] - 02/06/2022 10:15 AM SOD CUTTER EXAMINATION: Images For Reference Purposes Only us Natalia Aguilar MD PhD IMG MAMMO PROCEDURES Final Result [facility] documented in this encounter Visit Diagnoses Not on filedocumented in this encounter
--- OUTSIDE RECORDS SUMMARY | 2019-09-30 23:00 | XMS_ITS | Encounter Summary ---
Author Organization [facility] Healthcare Address [address] [place] [address] Care Team Providers Care Pastrycook'S Assistant Name Role Phone Unavailable Primary Care Provider Unavailabl e Reason for Visit * Diagnostic Imaging (Routine) - Closed Specialty Diagnoses / Procedures Referred By Contac t Referred To Contact Procedures Breast Imaging Screening Outside Reference Aft, Natalia Church MD PhD [address] [place] [phone] Phone: tel: fax: Referral ID Status Reason Start Date Expiration Date Visits Re quested Visits Authorized [id number] Closed 02/06/2022 03/08/2023 1 1 Encounter Details Date Type Department Care Team (Late st Contact Info) Description 10/01/2019 Hospital Encounter [facility] Radiology [facility] [address] [place] [address] [id number] Social History Tobacco Use Types Packs/Day Years [...] on file Legal Sex Female 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 There will be no report generated by a [facility] Radiologist. Narrative [facility] - 02/06/2022 10:15 AM MANUFACTURING CONTROLLER EXAMINATION: Images For Reference Purposes Only us Ntaalia Aguilar MD PhD IMG MAMMO PROCEDURES Final Result [facility] documented in this encounter Visit Diagnoses Not on filedocumented in this encounter
--- NOTE | 2025-01-24 08:48 | ECG_ITS ---
Test Date: 2025-01-24 09:05:19 Measurements Intervals [place] Rate: 84 P: 11 DE: 188 QRS: -7 QRSD: 105 T: 9 QT: 392 QTc: 463 Interpretive Statements SINUS RHYTHM No previous ECG available for comparison Electronically Signed On 01-24-2025 09:42:57 [employer] by Jagjit Ramírez M.D.
--- OUTSIDE RECORDS SUMMARY | 2025-01-24 09:01 | XMS_ITS | Clinical Summary ---
Author Organization [facility] Address [address] [place] [address] Care Team Providers Care Personal Protection Specialist Name Role Phone Hilario Grady MD Primary Care Provider [phone] [facility],non-owned Affiliates and Associated Physician Practices is amultiple site organization consisting of ambulatory clinics and hospital sitesin [place], [place], [place] and [place]. This disclosure is being madepursuant to the Care Everywhere program and may not contain all information available regarding this patient. Last updated 17.[facility] Allergies Active Allergy Reactions Criticality Noted Date Comments [place] Anaphylaxis High 02/20/2022 Contrast-Iodinated Agents For Ct/Other Unknown 10/14/2022 Mercury Anaphylaxis High 02/20/2022 Nickel Rash,Other Medium 02/20/2022 Shellfish Allergy Unknown 10/14/2022 Medications * Be aware that medications may not be up to date on this document. Alwaysverify current medications with the patient. lisinopril (Prinivil; Zestril) 20 MG tablet Take 1 (one) tablet by mouth once daily 02/05/2022 Active acetaminophen (Tylenol) 160 MG/5ML solution Take 20.3125 mL by mouth every 6 hours 10/16/2022 Active ibuprofen (Advil; Motrin) 100 MG/5ML suspension Take 30 mL by mouth every 6 hours 10/16/2022 Active Active Problems No known active problems Social History Tobacco Use Types Packs/Day Years Used Date Smoking Tobacco: Never Smokeless Tobacco: Never Alcohol Use Standard Drinks/Week Comments Never 0 (1 standard drink = 0.6 oz pur e alcohol) AUDIT-C Answer Date Recorded Q1: How often do you have a drink containing alc ohol? Never 10/16/2022 Average Number of Drinks Not on file 023 Frequency of Binge Drinking Not on file 09/22 Comments No Sex and Gender Information Value Date Recorded Sex Assigned at Not on file Legal Sex Female 9:29 AM CDT Gender Identity Not on file Sexual Orientation Not on file Last Filed Vital Signs Vital Sign Reading Time Taken Comments Blood Pressure 139/92 10/16/2022 1:15 PM CDT Pulse 67 10/16/2022 1:15 PM CDT Temperature 36.8 C (98.3 F) 10/16/2022 12:35 PM CDT Respiratory Rate 16 10/16/2022 1:15 PM CDT Oxygen Saturation 98% 10/16/2022 1:15 PM CDT Inhaled Oxygen Concentration - - Weight 84.4 kg (186 lb 1.1 oz) 10/16/2022 8:40 A M CDT Height 170.2 cm (5' 7) 10/16/2022 8:40 AM CDT Body Mass Index 29.14 10/16/2022 8:40 AM CDT Plan of Treatment Health Maintenance Due Date Last Done Comments COLOGUARD (AGES 45-75) - COL ON CA SCREENING 1976 COLON MONITORING 1976 COLONOSCOPY - COLON CA SCREENING 1976 CT COLONOGRAPHY - COLON CA SCREENING 1976 Colorectal Cancer Screening 1976 FIT - COLON CA SCREENING 1976 FLEX SIG - COLON CA SCREENING 1976 LIPID TESTING 1976 MAMMOGRAM 1976 HIV SCREENING 11/27/1991 HEPATITIS C SCREENING 11/22/1994 DTAP/TDAP/TD VACCINES (1 - Tdap) 11/27/1995 HEPATITIS B VACCINE (1 of 3 - 19+ 3-dose series) 11/27/1995 PAP SMEAR 1997 DEPRESSION SCREENING 03/24/2024 COVID-19 VACCINE (1 - 2023-2 5 season) 2024 INFLUENZA VACCINE (#1) 2024 ZOSTER VACCINE (1 of 2) 2026 HIB VACCINE Aged Out No longer eligi ble based on patient's age to complete this topic HPV VACCINE Aged Out No longer eligi ble based on patient's age to complete this topic MENINGOCOCCAL (Group B) VACC INE SHARED DECISION-MAKING Aged Out No longer eligibl e based on patient's age to complete this topic MENINGOCOCCAL GROUPS A/C/Y/W VACCINE Aged Out No longer eligible b ased on patient's age to complete this topic PNEUMOCOCCAL VACCINE Aged Out No long er eligible based on patient's age to complete this topic Insurance [facility] Care Teams Personal Protection Specialist Relationship Specialty Start Date End Date Hilario Grady MD [address] [place] [address] PCP - General Family Medicine 10/15/22
--- OUTSIDE RECORDS SUMMARY | 2025-01-24 09:01 | XMS_ITS | Clinical Summary ---
Author Organization [facility] Address [address] [place] [address] Care Team Providers Care Congressional Representative Name Role Phone Hilario Grady MD Primary Care Provider Raya Jovel NP Unavailable Jamie Hernandez MD Unavailable [phone] Allergies Active Allergy Reactions Criticality Noted Date Comments Adhesive Rash Medium 08/25/2024 Amlodipine Swelling,Rash Medium 12/22/2023 [place] Anaphylaxis High 02/20/2022 Activated Jmrgexta-Wjsu-Ldei Swelling Medium 12/22/2023 Icy Hot Stick Swelling Medium 12/22/2023 Iodine Anaphylaxis High 02/20/2022 Mercury Anaphylaxis High 02/20/2022 Nickel Rash,Redness Medium 02/20/2022 Other Swelling Medium 07/28/2024 Aluminum cans cause tingling Shellfish Containing Products Anaphylaxis,Rash,Redne ss High 02/20/2022 Medications hydroCHLOROthia zide (HYDRODIURIL) 25 mg tablet Take 1 tablet (25 mg total) by mouth every morning 4 Active EPINEPHrine 0.3 mg/0.3 mL auto-injection syringe Inject 0.3 mL (0.3 mg total) into the muscle as instructed as needed for anaphylaxis Active zolpidem (AMBIEN) 5 mg tablet Take 1 tablet (5 mg total) by mouth nightly as needed for sleep 5 Active calcium carb/vit D3/minerals (CALCIUM-VITAMI N D ORAL) Take 1 tablet by mouth every morning Active verapamil SR (CALAN SR) 240 mg CR tablet Take 1 tablet (240 mg total) by mouth 2 (two) times a day Weekends only takes 1 tablet in the morning. 5 Active ibuprofen (AdviL) 200 mg tab/capIndicati ons:Pain Take 2 tablet/capsule (400 mg total) by mouth every 6 (six) hours as needed for pain 2 tablets Active calcium carbonate (Tums) 500 mg (200 mg elemental calcium) chewable tablet Take 2 tablet/chew tab (1,000 mg total) by mouth as needed for indigestion or heartburn Active diphenhydrAMINE 25 mg capsuleIndicati ons:itching Take 2 tablet/capsule (50 mg total) by mouth every 6 (six) hours as needed for itching 2 tablets Active hydrocortisone 1 % cream Apply 1 Application topically as needed Active docusate sodium (COLACE) 100 mg capsule Take 3-4 capsules (300-400 mg total) by mouth nightly 3-4 tablets Active cyclobenzaprine (FLEXERIL) 10 mg tabletIndicatio ns:Muscle Spasm Take 1 tablet (10 mg total) by mouth every 8 (eight) hours as needed for muscle spasms for up to 20 doses 20 tablet 5 Active oxyCODONE (ROXICODONE) 5 mg immediate release tabletIndicatio ns:Pain Take 1 tablet (5 mg total) by mouth every 4 (four) hours as needed for pain for up to 20 doses 20 tablet 5 Active albuterol HFA (PROVENTIL HFA,VENTOLIN HFA,PROAIR HFA) 90 mcg/actuation inhaler Inhale 2 puffs every 4 (four) hours as needed for wheezing Active hydroxychloroqu ine (PLAQUENIL) 200 mg tablet Take 1 tablet (200 mg total) by mouth daily 30 tablet 5 5 05/14/19 26 Active Active Problems Problem Noted Date Diagnosed Date Intraductal papilloma 07/01/2024 Mass of left breast 02/25/2022 Encounters Date Type Department Care Team Description 12/01/2024 4:00 PM CDT Office Visit [facility] Medicine Surgery [facility] [address] [place] [address] Aft, Natalia Church MD PhD Intraductal papilloma (Primary Dx); Mass of left breast, unspecified quadrant 11/15/2024 4:00 PM CDT Office Visit [facility] Medicine Rheumatology [address] [facility] [address] [place] [id number] Gayla Han MD Sjogren's syndrome, with unspecified organ involvement (Primary Dx); High risk medication use from Last 3 Months Immunizations Immunization Administration Dates Next Due Tdap 04/27/2019 Surgical History Surgery Date Site/Laterality Comments BREAST BIOPSY 02/25/2022 Left BACK SURGERY 03/24/1985 - 03/23/1986 KNEE SURGERY 03/24/2003 - 03/23/2004 Left DILATION AND CURETTAGE OF UTERUS 03/24/2014 - 03/23/2015 [facility] SECTION 03/24/2016 - 03/23/2017 SECTION 03/24/2019 - 03/23/2020 TONSILLECTOMY 03/24/2022 - 03/23/2023 ENDOMETRIAL ABLATION 03/24/2020 - 03/23/2021 BREAST BIOPSY 03/25/2024 Right FOOT SURGERY 03/24/1995 - 03/23/1996 Left hardware COLONOSCOPY last one was 2022, polyps removed Medical History Medical History Date Comments Hypertension 2021 Asthma 1992 Miscarriage 2014 Total of 3 from [id number] Pneumonia Headache Overweight Sjogren syndrome Family History Medical History Relation Name Comments Hypertension Brother Kidney nephrosis Brother Arthritis Father Diabetes Father Hypertension Father Psoriasis Father Lupus Father's Sister Daughter als o has lupus Arthritis Mother Hypertension Mother Lung cancer Paternal Grandfather Lupus Paternal cousin Mother is pa tient's paternal aunt with lupus Hypertension Sister 1 Other Sister 1 Thyrioidism Mental illness Sister 2 Other Sister 2 addiction Anesthesia problems Neg Hx Relation Name Status Comments Brother Father Alive Father's Sister Mother Alive Paternal Grandfather Paternal cousin Alive Sister 1 Sister 2 Alive Social History Tobacco Use Types Packs/Day Years Used Date Smoking Tobacco: Never Passive Smoke Exposure: Past Smokeless Tobacco: Never Tobacco Cessation:Counseling Given: Not Answered AUDIT-C Answer Date Recorded Q1: How often [...] on file 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 Gender Identity Not on file Sexual Orientation Not on file Last Filed Vital Signs Vital Sign Reading Time Taken Comments Blood Pressure 145/100 11/15/2024 3:21 PM CDT Pulse 94 11/15/2024 3:12 PM CDT Temperature 36.5 C (97.7 F) 11/15/2024 3:12 PM CDT Respiratory Rate 16 08/13/2024 9:25 AM CDT Oxygen Saturation 98% 09/13/2024 3:40 PM CDT Inhaled Oxygen Concentration - - Weight 98.9 kg (218 lb) 12/01/2024 3:51 PM CDT Height 170.2 cm (5' 7.01) 12/01/2024 3:51 PM CD T Body Mass Index 34.14 12/01/2024 3:51 PM CDT Plan of Treatment Health Maintenance Due Date Last Done Comments Breast Cancer Screening-Mammogram 1976 Cervical Cancer Screening 1976 Colon Cancer Screening-Colonoscopy 1976 Depression Screening 1976 Hepatitis C Screening 1976 Hepatitis B Screening 1994 Regular Well Visit/Exam 18-64 1994 Pneumococcal vaccine <65 (1 of 2 - PCV) 11/27/1995 Zoster Vaccine (1 of 2) 11/27/1995 Influenza Vaccine (#1) 2024 DTaP/Tdap/Td Vaccine (2 - Td or Tdap) 04/27/202906/2019 Medical Devices Implanted Type Area Frame Bander Device Identifier Shelf Expiration Date Model / Serial / Lot [employer] Marker Liquid Organic Coating Injectable Suspension Tracer Iron Oxide Magtrace [id number] - [id number] Implanted:Qty: 1 on 08/12/2024 by Aft, Natalia Church MD PhD at [facility] Other - see comments Right: Breast [employer] 05/16/2026 [id number] / / [id number] Hardware Left: Foot Bard Peripheral Vascular Ultraclip Bard 17ga 10cm 2 Trigger Permanent Ultrasound [id number] - [id number] Implanted:Qty: 1 on 02/25/2022 at [facility] [employer] [id number] / / [employer] Eviva 13cm Identifier Biopsy Site [id number] - [id number] Implanted:Qty: 1 on 03/25/2024 at [facility] [employer] [id number] 11/18/2024 [facility] LUIZA-13 / / [id number] Insurance [employer] Advance Directives For more information, please contact: [phone] * Full Code (Latest Code Status on File) Date Activated Date Inactivated Comments 08/12/2024 11:55 AM 08/13/2024 3:19 PM Care Teams Congressional Representative Relationship Specialty Start Date End Date Hilario Grady MD [address] [facility] [address] [place] [address] PCP - General Family Medicine 12/26/21 Raya Jovel NP [address] [facility] [address] [place] [address] Nurse Practitioner Nurse Practitioner 02/20/22 Jamie Hernandez MD [address] [facility] [address] [place] [address] Referring Physician Obstetrics and Gynecology 01/27/24
[2025-01-24 11:12] LABS: Anion Gap 9 mmol/L (4-12); Blood Urea Nitrogen 11 mg/dL (7-17); Calcium 9.4 mg/dL (8.4-10.2); Carbon Dioxide 22 mmol/L (22-30); Chloride 103 mmol/L (98-107); Estimated Glomerular Filt Rate > 60; Glucose 83 mg/dL (65-110); Potassium 3.8 mmol/L (3.4-5.0); Sodium 134 mmol/L (137-145)
== END 2025-01-24 08:44 | disposition home or self-care (01) ==
PROVIDERS: Anesthesiology; PCP Family Medicine; Visit Provider Orthopaedic Surgery
DX: Z79.899 Other long term (current) drug therapy (principal); I10 Essential (primary) hypertension; Z01.818 Encounter for other preprocedural examination
CPT/HCPCS: 36415; 80048; 93005

== ENCOUNTER 2025-01-28 00:59 | Day surgery (SDC) | payer BC, SELFPAY ==
--- OUTSIDE RECORDS SUMMARY | 2017-08-10 23:00 | XMS_ITS | Encounter Summary ---
Author Organization [facility] Healthcare Address [address] [place] [address] Care Team Providers Care Electrical Worker Name Role Phone Unavailable Primary Care Provider Unavailabl e Reason for Visit * Diagnostic Imaging (Routine) - Closed Specialty Diagnoses / Procedures Referred By Contac t Referred To Contact Procedures Breast Imaging Screening Outside Reference Aft, Natalia Church MD PhD [address] [place] [address] Phone: tel: fax: Referral ID Status Reason Start Date Expiration Date Visits Re quested Visits Authorized [id number] Closed 02/06/2022 03/08/2023 1 1 Encounter Details Date Type Department Care Team (Late st Contact Info) Description 08/11/2017 Hospital Encounter [facility] [address] [place] [place] [address] [phone] Social History Tobacco Use Types Packs/Day Years Used Date Smoking Tobacco: Never Passive Smoke Exposure: Past Smokeless Tobacco: Never AUDIT-C Answer Date Recorded Q1: How often do you have a drink containing alc ohol? Monthly or less 07/28/2024 Q2: How many drinks containi ng alcohol do you have on a typical day when you are drinking? 3 or 4 07/28/2024 Q3: How often do you have si x or more drinks on one occasion? Never 07/28/2024 Personal Safety Answer Date Recorded Have you ever been in or are you currently in a harmful physical or emotional relationship or is someone making you feel afraid or unsafe? Denies 08/12/2024 Comments No Sex and Gender Information Value Date Recorded Sex Assigned at Not on file Legal Sex Female 7:03 PM JAVA PROGRAMMER ANALYST Gender Identity Not on file Sexual Orientation Not on file documented as of this encounter Functional Status * C.A.G.E. Question Answer Date of Assessment Author Have you ever felt the need to Cut down on your drinking? 0 08/12/2024 11:59 AM NIKKIT Tiffany Moser RN Have people ever Annoyed yo u by criticizing your drinking? 0 08/12/2024 11:59 AM NIKKIT Tiffany Moser RN Have you ever felt bad or Guilty about your drinking? 0 08/12/2024 11:59 AM Tiffany Paz RN Have you ever had a drink first thing in the morning to steady your nerves or get rid of a hangover? Eye bladder changer? 0 08/12/2024 11:59 AM NIKKIT Tiffany Moser RN CAGE SCORE: 2 or Greater = Positive 0 08/12/2024 11:59 AM NIKKIT Tiffany Moser RN * Difference in Last Two Toan Scores Answer Date of Assessment Author -1 08/13/2024 8:00 AM CDT Nelda Jimenez bel * Question Answer Date of Assessment Author BP Method Automatic 08/13/2024 9:53 AM CDT Vianca He, OT MAP (mmHg) 73 08/13/2024 9:25 AM CDT Tiffanie Jimenez * Question Answer Date of Assessment Author Dixon Fall Risk Score (Score >= 45 places fall precaution order) 35 08/13/2024 8:00 AM CDT Jemima Jimenez Prior Fall Event (Autopopula flor from EMR) None found 08/13/2024 8:00 AM CDT Tiffanie Jimenez * BP Location Answer Date of Assessment Author Left arm 11/15/2024 3:12 PM CDT Chad San RMA * Fall Risk Interventions Question Answer Date of Assessment Author All Low Fall Interventions Applied Yes 08/13/2024 8:00 AM CDT Tiffanie Jimenez All Moderate Fall Interventions Applied Yes 08/13/2024 8:00 AM CDT Tiffanie Jimenez All Moderate Fall Risk Interventions EXCEPT: PT eval requested or obtained;OT eval requested or obtained 08/12/2024 9:18 PM CDT Desirae Nation All High Fall Risk Interventions Applied Yes 08/12/2024 6:14 AM CDT Radha Murdock Additional Interventions Applied Over-bed table on non-exit side;Exit bed on strong/preferred side 08/12/2024 11:59 AM Tiffany Paz RN Reason For Exception(s) bmat level 4 green 08/12 9:18 PM CDT Desirae Nation * B.M.A.T. - Bedside Mobility Assessment Tool for Nurses Question Answer Date of Assessment Author Is patient able to participa te in the BMAT? Yes 08/13/2024 8:00 AM CDT Tiffanie Jimenez BMAT Level Level 4 - Green 08/13/2024 8:00 AM CDT Tiffanie Santana * Question Answer Date of Assessment Author 1. Has the patient self-reported, presented with clinical signs of, or have a documented history of any of the following within the past 30 days? No 08/12/2024 11:59 AM Tiffany Paz RN * Question Answer Date of Assessment Author Is the patient being treated today because it is known or suspected that they prepared, started, or tried to end their life? No 08/12/2024 11:59 AM Tiffany Paz RN * Question Answer Date of Assessment Author 1. In the past month, have y ou wished you were or that you could go to sleep and not wake up? No 08/12/2024 11:59 AM Tiffany Paz RN 2. In the past month, have y ou actually had any thoughts of killing yourself? No 08/12/2024 11:59 AM Tiffany Paz RN 6. Have you ever done anything, started to do anything, or prepared to do anything to end your life? No 08/12/2024 11:59 AM Guille Paz RN * Suicide Risk Level Answer Date of Assessment Author No risk level 08/12/2024 11:59 AM Nieves Paz RN * Self-Injurious Risk Level Answer Date of Assessment Author No risk level 08/12/2024 11:59 AM NIKKIT Nieves Moser RN * Pressure Injury Prevention Question Answer Date of Assessment Author Pressure Ulcer Prevention Interventions Keep skin clean and dry (Sensory Perception/Moistur e) 08/13/2024 8:00 AM CDT Tiffanie Jimenez 2 Nurse Skin Assessment Mary Oseguera RN 08/13/19 11:59 AM NIKKIT Tiffany Moser RN * Transdermal Patch Admission Assessment Question Answer Date of Assessment Author Transdermal Patch Assessment on Admission Not Present 08/12/2024 11:59 AM NIKKIT Ernestine Moser RN * AUDIT-C Score Answer Date of Assessment Author 2 07/28/2024 4:43 PM NIKKIT Lashawn Guthrie RN * Alcohol Use Question Answer Date of Assessment Author Q1: How often do you have a drink containing alcohol? Monthly or less 07/28/2024 4:43 PM Purvi Aj RN Q2: How many drinks containing alcohol do you have on a typical day when you are drinking? 3 or 4 07/28/2024 4:43 PM NIKKIT Karlee Barrios RN Q3: How often do you have six or more drinks on one occasion? Never 07/28/2024 4:43 PM Purvi Aj RN * Integumentary Question Answer Date of Assessment Author Skin Color Appropriate for ethnicity 08/13/2024 8:00 AM NIKKIT Tiffanie Jimenez Skin Condition/Temp Warm;Dry 08/13/2024 8:00 AM CD Tiffanie Aparicio Skin Integrity Surgical incision 08/13/2024 8:00 AM Tiffanie Curtis Skin Turgor Non-tenting 08/13/2024 8:00 AM CDT Tiffanie Jimenez Integumentary Additional Assessments Yes-Toan 08/13/2024 8:00 AM CDT Tiffanie Jimenez Integumentary (WDL) X 08/13/2024 8:00 AM CD T Tiffanie Jimenez Skin Location Bilateral Breasts 08/13/2024 8:00 AM CDT Tiffanie Jimenez * Toan Scale Question Answer Date of Assessment Author Toan Scale Used Toan 08/12/2024 11:10 AM CDT Nicki Gavin * Question Answer Date of Assessment Author BP Method Automatic 08/13/2024 9:53 AM CDT Vianca He, OT * Question Answer Date of Assessment Author Percent Meal Eaten (%) 0 08/12/2024 12:03 P M CDT Shanna Peter * BP Location Answer Date of Assessment Author Left arm 11/15/2024 3:12 PM CDT Chad San RMA * Fall Risk Interventions Question Answer Date of Assessment Author All Low Fall Interventions Applied Yes 08/13/2024 8:00 AM CDT Tiffanie Jimenez All Moderate Fall Interventions Applied Yes 08/13/2024 8:00 AM CDT Tiffanie Jimenez All Moderate Fall Risk Interventions EXCEPT: PT eval requested or obtained;OT eval requested or obtained 08/12/2024 9:18 PM CDT Desirae Nation All High Fall Risk Interventions Applied Yes 08/12/2024 6:14 AM CDT Radha Murdock Additional Interventions Applied Over-bed table on non-exit side;Exit bed on strong/preferred side 08/12/2024 11:59 AM NIKKIT Tiffany Moser RN Reason For Exception(s) bmat level 4 green 08/12 9:18 PM CDT Desirae Nation * ADL Screening Question Answer Date of Assessment Author Patient's Vision Adequate to Safely Complete Daily Activities Yes 08/12/2024 11:59 AM Tiffany Paz RN Patient's Judgement Adequate to Safely Complete Daily Activities Yes 08/12/2024 11:59 AM NIKKIT Roberth Moser RN Patient's Memory Adequate to Safely Complete Daily Activities Yes 08/12/2024 11:59 AM NIKKIT Tiffany Moser RN Patient Able to Express Needs/Desires Yes 08/12/2024 11:59 AM Tiffany Paz RN Dressing Independent 08/12/2024 11:59 AM Tiffany Ennis RN Grooming Independent 08/12/2024 11:59 AM Tiffany Ennis RN Feeding Independent 08/12/2024 11:59 AM Tiffany Ennis RN Bathing Independent 08/12/2024 11:59 AM Tiffany Ennis RN Toileting Independent 08/12/2024 11:59 AM Tiffany Ennis RN In/Out Bed Independent 08/12/2024 11:59 AM Tiffany Ennis RN Walks in Home Independent 08/12/2024 11:59 AM Tiffany Thacker RN Weakness of Legs None 08/12/2024 11:59 AM Tiffany Paz RN Weakness of Arms/Hands None 08/12/2024 11:59 A M Tiffany Paz RN Hearing - Right Ear Functional 08/12/2024 11:59 AM C Tiffany Hurley RN Hearing - Left Ear Functional 08/12/2024 11:59 AM Tiffany Ibarra RN Dominant hand? Right 08/12/2024 11:59 AM Tiffany Flores RN Decline in ADLs in last 2 weeks? No 08/12/2024 11:59 AM Tiffany Paz RN * Therapy Consults Question Answer Date of Assessment Author PT Evaluation Needed 2 08/12/2024 11:59 AM Tiffany Paz RN OT Evaluation Needed 2 08/12/2024 11:59 AM Tiffany Paz RN TEAM MANAGER Evaluation Needed 2 08/12/2024 11:59 AM Tiffany Paz RN * Assistive Devices Question Answer Date of Assessment Author Assistive Devices/DME Eyeglasses 08/12/2024 11:59 AM Tiffany Paz RN * Speech/Swallow Screening Question Answer Date of Assessment Author Currently, does patient have difficulty swallowing; coughing/choking while swallowing, or feels like food is sticking No 08/12/2024 11:59 AM Tiffany Paz RN In the past two weeks has the patient had changes in speaking or ability to comprehend conversation No 08/12/2024 11:59 AM Tiffany Paz RN Currently, does patient require thickened liquids or dysphagia diet No 08/12/2024 11:59 AM Tiffany Paz RN Patient is in need of TEAM MANAGER Order: No TEAM MANAGER order needed from this assessment 08/12/2024 11:59 AM Tiffany Paz RN * Hygiene Question Answer Date of Assessment Author Hygiene Level of Assistance Independent 08/12/2024 7:35 PM Desirae Fuentes Toileting: Assistance with Increased time to complete 08/12/2024 5:39 PM Tiffany Paz RN Toileting: Level of assistance Independent;Set up 08/12/2024 5:39 PM Tiffany Paz RN Reason not bathed/showered Patient/family refused bath/shower 08/13/2024 11:00 AM CDT Tiffanie Jimenez Bath Not bathed/showered 08/13/2024 1 1:00 AM CDT Tiffanie Jimenez documented as of this encounter Mental Status * Question Answer Entry Date Author Orientation Oriented X4 (person, place, time, situation) 08/13/2024 9:46 AM CDT Vianca He OT * Question Answer Entry Date Author Level of Consciousness Alert;Awake 08/12/2024 9:18 PM NIKKIT Desirae Nation Neuro (WDL) WDL 08/13/2024 8:00 AM CDT Tiffanie Jimenez * Short Blessed Test Question Answer Entry Date Author What year is it now? 0 08/13/2024 9:46 AM CDT Vianca He OT What month is it now? 0 08/13/2024 9:46 AM CDT Vianca He OT Without looking at the clock, tell me what time it is 0 08/13/2024 9:46 AM CDT Vianca He OT Count aloud backwards from 20-1 0 08/13/2024 9:46 AM CDT Vianca He OT Say the months of the year backwards in reverse order 0 08/13/2024 9:46 AM CDT Vianca He OT Repeat the name and address I asked you to remember 2 08/13/2024 9:46 AM CDT Vianca He, OT Repeat this name and address after me Avinash Townsend [address] [place] [address] 08/13/2024 9:46 AM CDT Vianca He, OT Short Blessed Total Score 2 08/13/2024 9:46 AM CDT Vianca He, OT Short Blessed Comments WNL 9:46 AM CDT Vianca He, OT documented in this encounter Plan of Treatment Not on file documented as of this encounter Procedures Procedure Name Priority Date/Time Associated Diagnosis Comments BREAST IMAGING MG SCREENING OUTSIDE REFERENCE Routine 08/11/2017 12:00 AM CDT documented in this encounter Results * Breast Imaging Screening Outside Reference (08/11/2017 12:00 AM CDT) Impressions [facility] - 02/06/2022 10:15 AM JAVA PROGRAMMER ANALYST These images are for Reference purposes only and have not been reviewed by [facility]. There will be no report generated by a [facility] Radiologist. Narrative [facility] - 02/06/2022 10:15 AM JAVA PROGRAMMER ANALYST EXAMINATION: Images For Reference Purposes Only us Natalia Aguilar MD PhD IMG MAMMO PROCEDURES Final Result [facility] documented in this encounter Visit Diagnoses Not on filedocumented in this encounter
--- OUTSIDE RECORDS SUMMARY | 2017-09-08 23:05 | XMS_ITS | Encounter Summary ---
Author Organization [facility] Healthcare Address [address] [place] [address] Care Team Providers Care Motion Study Technician Name Role Phone Unavailable Primary Care Provider Unavailabl e Reason for Visit * Diagnostic Imaging (Routine) - Closed Specialty Diagnoses / Procedures Referred By Contac t Referred To Contact Procedures Breast Imaging Diagnostic Outside Reference Aft, Natalia Church MD PhD [address] [place] [address] Phone: tel: fax: Referral ID Status Reason Start Date Expiration Date Visits Re quested Visits Authorized [id number] Closed 02/06/2022 03/08/2023 1 1 Encounter Details Date Type Department Care Team (Late st Contact Info) Description 09/09/2017 12:05 AM CDT Hospital Encounter [facility] [address] [place] [id number] Social History Tobacco Use Types Packs/Day Years [...] on file Legal Sex Female 7:03 PM 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 Eye tight cooper? 0 08/12/2024 11:59 AM NIKKIT Tiffany Moser RN CAGE SCORE: 2 or Greater = Positive 0 08/12/2024 11:59 AM NIKKIT Tiffany Moser RN * Difference in Last Two Toan Scores Answer Date of Assessment Author -1 08/13/2024 8:00 AM CDT Nelda Jimenez bel * Question Answer Date of Assessment Author BP Method Automatic 08/13/2024 9:53 AM CDT Vianca He OT MAP (mmHg) 73 08/13/2024 9:25 AM [...] Fall Interventions Applied Yes 08/13/2024 8:00 AM Tiffanie Reyes All Moderate Fall Interventions Applied Yes 08/13/2024 8:00 AM CDT Tiffanie Jimenez All Moderate Fall Risk Interventions EXCEPT: PT eval requested or obtained;OT eval requested or obtained 08/12/2024 9:18 PM CDT Desirae Nation All High Fall Risk Interventions Applied Yes 08/12/2024 6:14 AM CDT Radha Murdock Additional Interventions Applied Over-bed table on non-exit side;Exit bed on strong/preferred side 08/12/2024 11:59 AM NIKKIT Tiffany Moser, IRASEMA Reason For Exception(s) bmat level 4 green 08/12 9:18 PM CDT Desirae Nation * B.M.A.T. - Bedside Mobility Assessment Tool for Nurses Question Answer Date of Assessment Author Is patient able to participa te in the BMAT? Yes 08/13/2024 8:00 AM CDT Tiffanie Jimenez BMAT Level Level 4 - Green 08/13/2024 8:00 AM CDT Tiffanie Go * Question Answer Date of Assessment Author [...] 08/12/2024 11:59 AM Nieves Paz RN * Pressure Injury Prevention Question Answer [...] of Assessment Author 2 07/28/2024 4:43 PM Lashawn Segovia RN * Alcohol Use Question Answer Date of Assessment Author Q1: How often do you have a drink containing alcohol? Monthly or less 07/28/2024 4:43 PM Purvi Aj RN Q2: How many drinks containing alcohol do you have on a typical day when you are drinking? 3 or 4 07/28/2024 4:43 PM Karlee Aj RN Q3: How often do you have six or more drinks on one occasion? Never 07/28/2024 4:43 PM Purvi Aj RN * Integumentary Question Answer Date of Assessment Author Skin Color Appropriate for ethnicity 08/13/2024 8:00 AM Tiffanie Reyes Skin Condition/Temp Warm;Dry 08/13/2024 8:00 AM Tiffanie Curtis Skin Integrity Surgical incision 08/13/2024 8:00 AM Tiffanie Curtis Skin Turgor Non-tenting 08/13/2024 8:00 AM NIKKIT Tiffanie Jimenez Integumentary Additional Assessments Yes-Toan 08/13/2024 8:00 AM Tiffanie Reyes Integumentary (WDL) X 08/13/2024 8:00 AM Tiffanie Curtis Skin Location Bilateral Breasts 08/13/2024 8:00 AM [...] bed on strong/preferred side 08/12/2024 11:59 AM CDT Tiffany Moser RN Reason For Exception(s) bmat [...] Yes 08/12/2024 11:59 AM Tiffany Paz RN Patient Able to Express Needs/Desires Yes [...] 2 08/12/2024 11:59 AM Tiffany Paz RN CANDLE MOLDER MACHINE Evaluation Needed 2 08/12/2024 11:59 AM Tiffany [...] Paz RN Patient is in need of CANDLE MOLDER MACHINE Order: No CANDLE MOLDER MACHINE order needed from this assessment 08/12/2024 11:59 AM Tiffany Paz RN * Hygiene Question Answer Date of Assessment Author Hygiene Level of Assistance Independent 08/12/2024 7:35 PM NIKKIT Desirae Nation Toileting: Assistance with Increased time to complete [...] Level of Consciousness Alert;Awake 08/12/2024 9:18 PM CDT Desirae Nation Neuro (WDL) WDL 08/13/2024 8:00 [...] Vianca He OT Count aloud backwards from 20- 0 08/13/2024 9:46 AM CDT Vianca He OT Say the months of the year backwards in reverse order 0 08/13/2024 9:46 AM CDT Vianca He OT Repeat the name and address I asked you to remember 2 08/13/2024 9:46 AM CDT Vianca He OT Repeat this name and address after me Avinash Townsend [address] [place] [address] 08/13/2024 9:46 AM CDT Vianca He OT Short Blessed Total Score 2 08/13/2024 9:46 AM CDT Vianca He OT Short Blessed Comments WNL 9:46 AM CDT Vianca He OT documented in this encounter Plan of Treatment Not on file documented as of this encounter Procedures Procedure Name Priority Date/Time Associated Diagnosis Comments BREAST IMAGING MG DIAGNOSTIC OUTSIDE REFERENCE Routine 09/09/2017 12:05 AM CDT documented in this encounter Results * Breast Imaging Diagnostic Outside Reference (09/09/2017 12:05 AM CDT) Impressions [facility] - 02/06/2022 10:15 AM PHOTOGRAPHY SALES ASSOCIATE These images are for Reference purposes only and have not been reviewed by [facility]. There will be no report generated by a [facility] Radiologist. Narrative [facility] - 02/06/2022 10:15 AM PHOTOGRAPHY SALES ASSOCIATE EXAMINATION: Images For Reference Purposes Only us Natalia Aguilar MD PhD IMG MAMMO PROCEDURES Final Result [facility] documented in this encounter Visit Diagnoses Not on filedocumented in this encounter
--- OUTSIDE RECORDS SUMMARY | 2018-06-15 23:00 | XMS_ITS | Encounter Summary ---
Author Organization [facility] Healthcare Address [address] [place] [address] Care Team Providers Care Tube Laser Operator Name Role Phone Unavailable Primary Care Provider Unavailabl e Reason for Visit * Diagnostic Imaging (Routine) - Closed Specialty Diagnoses / Procedures Referred By Contac t Referred To Contact Procedures Breast Imaging Diagnostic Outside Reference Aft, Natalia Church MD PhD [address] [place] [id number] Phone: tel: fax: Referral ID Status Reason Start Date Expiration Date Visits Re quested Visits Authorized [id number] Closed 02/06/2022 03/08/2023 1 1 Encounter Details Date Type Department Care Team (Late st Contact Info) Description 06/16/2018 Hospital Encounter [facility] [address] [place] [address] [phone] Social History Tobacco Use Types Packs/Day Years [...] on file 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 0 08/12/2024 11:59 AM NIKKIT Tiffany Moser [...] Integumentary Additional Assessments Yes-Toan 08/13/2024 8:00 AM NIKKIT Tiffanie Jimenez Integumentary (WDL) X 08/13/2024 8:00 AM CD Tiffanie Aparicio Skin Location Bilateral Breasts 08/13/2024 8:00 AM CDT Tiffanie Jimenez * Toan Scale Question Answer Date of Assessment Author Toan Scale Used Toan 08/12/2024 11:10 AM CDT Nicki Gavin * Question Answer Date of Assessment Author BP Method Automatic 08/13/2024 9:53 AM CDT Vianca He OT * Question Answer Date of Assessment [...] 08/12/2024 11:59 AM NIKKIT Tiffany Moser RN Patient's Judgement Adequate to Safely Complete Daily Activities Yes 08/12/2024 11:59 AM NIKKIT Roberth Moser RN Patient's Memory Adequate to Safely Complete Daily Activities Yes 08/12/2024 11:59 AM NIKKIT Tiffany Moser RN Patient Able to Express Needs/Desires Yes 08/12/2024 11:59 AM Tiffany aPz RN Dressing Independent 08/12/2024 11:59 AM Tiffany [...] 2 08/12/2024 11:59 AM Tiffany Paz RN PLUNKET NURSE Evaluation Needed 2 08/12/2024 11:59 AM Tiffany [...] comprehend conversation No 08/12/2024 11:59 AM Tiffany aPz RN Currently, does patient require thickened liquids or dysphagia diet No 08/12/2024 11:59 AM Tiffany Paz RN Patient is in need of PLUNKET NURSE Order: No PLUNKET NURSE order needed from this assessment 08/12/2024 11:59 [...] in reverse order 0 08/13/2024 9:46 AM NIKKIT Vianca He OT Repeat the name and address I asked you to remember 2 08/13/2024 9:46 AM CDT Vianca He OT Repeat this name and address after me Avinash Townesnd [address] [place] [address] 08/13/2024 9:46 AM CDT Vianca He, OT [...] CDT) Impressions [facility] - 02/06/2022 10:15 AM DYNAMOMETER REPAIRER These images are for Reference purposes only and have not been reviewed by [facility] Radiology. There will be no report generated by a [facility] Radiologist. Narrative [facility] - 02/06/2022 10:15 AM DYNAMOMETER REPAIRER EXAMINATION: Images For Reference Purposes Only us Natalia Aguilar MD PhD IMG MAMMO PROCEDURES Final Result [facility] documented in this encounter Visit Diagnoses Not on filedocumented in this encounter
--- OUTSIDE RECORDS SUMMARY | 2019-09-30 23:00 | XMS_ITS | Encounter Summary ---
Author Organization [facility] Healthcare Address [address] [place] [address] Care Team Providers Care Environmental Engineering Aide Name Role Phone Unavailable Primary Care Provider Unavailabl e Reason for Visit * Diagnostic Imaging (Routine) - Closed Specialty Diagnoses / Procedures Referred By Contac t Referred To Contact Procedures Breast Imaging Screening Outside Reference Aft, Natalia Church MD PhD [address] [place] [id number] Phone: tel: fax: Referral ID Status Reason Start Date Expiration Date Visits Re quested Visits Authorized [id number] Closed 02/06/2022 03/08/2023 1 1 Encounter Details Date Type Department Care Team (Late st Contact Info) Description 10/01/2019 Hospital Encounter [facility] [address] [place] [phone] Social History Tobacco Use Types Packs/Day Years [...] on file Legal Sex Female 7:03 PM BASS SINGER Gender Identity Not on file Sexual Orientation [...] or get rid of a hangover? Eye kennel hand? 0 08/12/2024 11:59 AM NIKKIT Tiffany Moser [...] EMR) None found 08/13/2024 8:00 AM CDT iTffanie Jimenez * BP Location Answer Date of [...] 2 08/12/2024 11:59 AM Tiffany Paz RN ELECTRICAL ASSEMBLY TECHNICIAN Evaluation Needed 2 08/12/2024 11:59 AM Tiffany [...] Paz RN Patient is in need of ELECTRICAL ASSEMBLY TECHNICIAN Order: No ELECTRICAL ASSEMBLY TECHNICIAN order needed from this assessment 08/12/2024 11:59 [...] name and address after me Avinash Townsend [address] [place] [address] 08/13/2024 9:46 AM CDT Vianca He, OT Short Blessed Total Score 2 08/13/2024 9:46 AM CDT Vianca He, OT [place] Comments WNL 9:46 AM CDT Vianca He, OT documented in this encounter Plan of Treatment Not on file documented as of this encounter Procedures Procedure Name Priority Date/Time Associated Diagnosis Comments BREAST IMAGING MG SCREENING OUTSIDE REFERENCE Routine 10/01/2019 12:00 AM CDT documented in this encounter Results * Breast Imaging Screening Outside Reference (10/01/2019 12:00 AM CDT) Impressions [facility]_M[facility]MO_[facility] - 02/06/2022 10:15 AM BASS SINGER These images are for Reference purposes only and have not been reviewed by [facility] Radiology. There will be no report generated by a [facility] Radiologist. Narrative [facility]MO[facility] - 02/06/2022 10:15 AM BASS SINGER EXAMINATION: Images For Reference Purposes Only us Natalia Aguilar MD PhD IMG MAMMO PROCEDURES Final Result [facility] documented in this encounter Visit Diagnoses Not on filedocumented in this encounter
[2025-01-19 10:18] VITALS: BMI 31.4
--- NOTE | 2025-01-19 10:28 | PC.NURSE ---
[facility] has started construction of its new state of the art ER which will open Spring 2026. With this, we anticipate parking may be a challenge for some our surgical patients and families. Parking spaces are limited but are available for all Surgical, obstetrics, and ER patients sharing this lot. If you arrive and find you are having a hard time finding a parking space, please note that we understand the challenges, please drive around the hospital and park near Hospital Entrance 1. When you enter this entrance, you can ask a volunteer to direct or take you back to the surgical waiting area to check in. We appreciate everyone?s understanding of these expected challenges while we build for your future. Report to the Outpatient Waiting Room, entrance under the green pavilion located off [address], at time _1000_ on date _[phone]_. Planned Procedure Time: _1200_.? Time changes happen often and if your time is changed the preop area will call you the afternoon before. - You and your visitor will be asked to self-screen and do not enter if you have any COVID symptoms. Please call surgeon if you need to reschedule. - A mask is optional within the hospital at this time. Patients may have clear liquids (water, carbonated beverages, clear teas, apple juice) until 3 hours prior to surgery with a maximum of 20 ounces. - No food from midnight until time of surgery and no smoking, or chewing tobacco (or any form of nicotine). No chewing gum, candy or mints. Take only the following medications with a SIP of water on the morning of surgery: ___Verapamil____ DO NOT STOP ANY OF YOUR OTHER PRESCRIPTION MEDICATIONS PRIOR TO SURGERY EXCEPT THE FOLLOWING Hold all vitamins and supplements for 3 days per anesthesiologist. Medications to discontinue per physician Date to take last lruk____[phone]___ Please no make-up, nail cymraes, hairspray, perfume, deodorant, or body powder the day of surgery.? No jewelry (including any body piercings) or valuables the day of surgery, leave them at home.? Please take a shower or bath the night before, or the morning of, surgery with an antibacterial soap.? Wear comfortable, loose fitting clothing.? - Jewelry must be removed prior to entering the operating room.? Rings and piercings that are not removed may be cut off. - The hospital will not accept responsibility for valuables.? - Please leave all valuables, including medications, at home the day of surgery. If you are going home after surgery, a licensed frontload driver must drive you home.? - NO public transportation without another adult if you receive anesthesia. - We recommend that an adult stay with you for 24 hours following discharge. - We also recommend that you do not drive, make important decision, drink alcoholic beverages, or take any drugs that were not prescribed by your health care provider for at least 24 hours after your discharge time. Follow any additional instructions given to you from your surgeon. Telephone instructions given to __Marlys___and asked if any additional questions and then verbalized understanding. Patient advised to call surgeon office or pre surgery nurse liaison [phone] if any additional questions.
[2025-01-28] VITALS (10 sets, daily range): BP systolic 126–186; BP diastolic 83–116; PULSE 65–80; RESP 14–18; TEMP 36.3; O2SAT 93–100
--- OUTSIDE RECORDS SUMMARY | 2025-01-28 01:02 | XMS_ITS | Clinical Summary ---
Author Organization [facility] Address [address] [place] [address] Care Team Providers Care General Assembler Name Role Phone Hilario Grady MD Primary Care Provider Raya Jovel NP Unavailable [phone] Jamie Hernandez MD Unavailable Allergies Active Allergy Reactions Criticality Noted Date Comments Adhesive Rash Medium 08/25/2024 Amlodipine Swelling,Rash Medium 12/22/2023 [place] Anaphylaxis High 02/20/2022 Activated Cjrwuvdt-Dkbd-Sxii Swelling Medium 12/22/2023 Icy Hot Stick Swelling [...] Description 12/01/2024 4:00 PM CDT Office Visit [facility] Medicine Surgery [facility] [address] [place] [address] Aft, Natalia Church MD PhD Intraductal papilloma (Primary Dx); Mass of left breast, unspecified quadrant 11/15/2024 4:00 PM CDT Office Visit [facility] Medicine Rheumatology [address] [facility] [address] [place] [phone] Gayla Han MD Sjogren's syndrome, with unspecified organ involvement (Primary Dx); High risk medication use from Last 3 Months Immunizations Immunization Administration Dates Next Due Tdap 04/27/2019 Surgical History Surgery Date Site/Laterality Comments BREAST BIOPSY 02/25/2022 Left BACK SURGERY 03/24/1985 - 03/23/1986 KNEE SURGERY 03/24/2003 - 03/23/2004 Left DILATION AND CURETTAGE OF UTERUS 03/24/2014 - 03/23/2015 [facility] SECTION 03/24/2016 - 03/23/2017 SECTION 03/24/2019 - 03/23/2020 TONSILLECTOMY 03/24/2022 - 03/23/2023 ENDOMETRIAL ABLATION 03/24/2020 - 03/23/2021 BREAST BIOPSY 03/25/2024 Right FOOT SURGERY 03/24/1995 - 03/23/1996 Left hardware COLONOSCOPY last one was 2022, polyps removed Medical History Medical History Date Comments Hypertension 2021 Asthma 1992 Miscarriage 2014 Total of 3 from [id number] Pneumonia Headache Overweight Sjogren syndrome Family History [...] on file 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 Marker Liquid Organic Coating Injectable Suspension Tracer Iron Oxide Magtrace [id number] - [id number] Implanted:Qty: 1 on 08/12/2024 by Aft, Natalia Church MD PhD at [facility] Other - see comments Right: Breast [employer] 05/16/2026 [id number] / / [id number] Hardware Left: Foot Bard Peripheral Vascular Ultraclip Bard 17ga 10cm 2 Trigger Permanent Ultrasound [id number] - [id number] Implanted:Qty: 1 on 02/25/2022 at [facility] [employer] [id number] / / [employer] Eviva 13cm Identifier Biopsy Site [id number] - [id number] Implanted:Qty: 1 on 03/25/2024 at [facility] [employer] [id number] 11/18/2024 [facility] LUIZA-13 / / [id number] Insurance [employer] Advance Directives For more information, please contact: [phone] * Full Code (Latest Code Status on File) Date Activated Date Inactivated Comments 08/12/2024 11:55 AM 08/13/2024 3:19 PM Care Teams General Assembler Relationship Specialty Start Date End Date Hilairo Grady MD [address] [facility] [address] [place] [address] PCP - General Family Medicine 12/26/21 Raya Jovel NP [address] [facility] [address] [place] [address] Nurse Practitioner Nurse Practitioner 02/20/22 Jamie Hernandez MD [address] [facility] [address] [place] [address] Referring Physician Obstetrics and Gynecology 01/27/24
--- OUTSIDE RECORDS SUMMARY | 2025-01-28 01:02 | XMS_ITS | Clinical Summary ---
Author Organization [facility] Address [address] [place] [address] Care Team Providers Care Choir Teacher Name Role Phone Hilario Grady MD Primary Care Provider [phone] [facility],non-owned Affiliates and Associated Physician Practices is amultiple site organization consisting of ambulatory clinics and hospital sitesin [place], [place], [place] and [place]. This disclosure is being madepursuant to the Care Everywhere program and may not contain all information available regarding this patient. Last updated 17.[facility] Allergies Active Allergy Reactions Criticality Noted Date Comments [place] Anaphylaxis High 02/20/2022 Contrast-Iodinated Agents For Ct/Other [...] patient's age to complete this topic Insurance [facility] Care Teams Choir Teacher Relationship Specialty Start Date End Date Hilario Grady MD [address] [place] [address] PCP - General Family Medicine 10/15/22
--- NOTE | 2025-01-28 09:22 | WPDHPUPDATE1 ---
History and Physical Update Update Date/Time: 01/28/25 09:22 History and Physical has been reviewed, including an updated exam of the patient. There are NO changes in the patient's condition. Risks, benefits, and alternatives have been discussed and questions answered. Patient agrees to proceed with procedure.
--- NOTE | 2025-01-28 11:54 | P.PNAN_ITS ---
Anes - Initial Pre Proc Eval Procedure: Operation Date: 01/28/25 12:00 Proposed Procedures p Left Shoulder Arthroscopy with Debridement, Subacromial Decompression - Tal Wesley MD Date/Time: 01/28/25 11:54 Surgeon: Tal Wesely MD Pre Op Diagnosis: rot cuff tear Patient Data Age: 49 Gender: F Height: 1.7 m Weight: 97 kg Last Vital Signs Temp 36.3 C L 01/28/25 11:21 Pulse 80 01/28/25 11:21 Resp 16 01/28/25 11:21 BP 139/98 H 01/28/25 11:21 Pulse Ox 100 01/28/25 11:21 O2 Del Method Room Air 01/28/25 11:21 Allergies Allergy/AdvReac Type Severity Reaction Status Date / Time cobalt Allergy Severe Anaphylactic Verified 01/28/25 11:20 Shock iodine Allergy Severe Anaphylactic Verified 01/28/25 11:20 Shock mercury (elemental) Allergy Severe ANAPHAL. Verified 01/28/25 11:20 SHOCK aluminum Allergy Intermediate HIVES Verified 01/28/25 11:20 amlodipine Allergy Intermediate Swelling Verified 01/28/25 11:20 adhesive tape Allergy Mild Blister Verified 01/28/25 11:20 antiarthritic combination Allergy Unknown LOOKS Verified 01/28/25 11:20 no.1 (From [place]) LIKE I WAS BURNED camphor (From [place]) Allergy Unknown LOOKS Verified 01/28/25 11:20 LIKE I WAS BURNED menthol (From [place]) Allergy Unknown LOOKS Verified 01/28/25 11:20 LIKE I WAS BURNED methyl salicylate (From Allergy Unknown LOOKS Verified 01/28/25 11:20 [place]) LIKE I WAS BURNED nickel Allergy Unknown Rash Verified 01/28/25 11:20 lisinopril AdvReac Severe angioedema Verified 01/28/25 11:20 SHELLFISH Allergy Unknown ANAPHALACTIC Uncoded 10/22/24 15:20 SHOCK Home Medications ?Medication ?Instructions ?Recorded ?Confirmed ?Type calcium 500 mg (as 1 tablet PO DAILY 05/18/19 1 03/26/24 History carbonate)-vitamin D3 5 mcg (200 unit) tablet (Calcium 500 + D) albuterol sulfate 90 mcg/actuation 1 puff inhalation Q 4-6H PRN 03/20/23 01/24/25 Rx aerosol inhaler shortness of breath or wheez ing #8.5 grams epinephrine 0.3 mg/0.3 mL 0.3 ml subcut ONCE #2 ea 05/1701/24/25 Rx injection, auto-injector hydrochlorothiazide 25 mg tablet 25 mg PO DAILY #90 ta bs 08/04/24 01/24/25 Rx verapamil 240 mg tablet,extended 240 mg PO BID #180 ta bs 09/06/24 01/24/25 Rx release zolpidem 5 mg tablet 5 mg PO QHS #30 tabs 5 01/24/25 Rx hydroxychloroquine 200 mg tablet 200 mg PO HS 01/19/25 01/24/25 History verapamil 120 mg 24 hr See Rx Instructions .Route 1 03/26/24 Rx capsule,extended release .COMPLEX #90 caps Patient hx anesthesia problems: none Family hx anesthesia problems: none Results Review: All pre-operative results and documents have been reviewed as part of the pre- operative evaluation. [facility] Past Medical History Medical History Unwanted fertility Postoperative pain Rotator cuff tendonitis Left shoulder pain Right knee pain Impingement syndrome of left shoulder Menometrorrhagia Breast cancer History of anaphylaxis HTN (hypertension) Fracture of rib of left side delivery delivered x 2 Adjustment insomnia Anaphylactic reaction due to other fish, subsequent encounter Surgical History Surgical History History of tonsillectomy History of hysteroscopy H/O tubal ligation History of D&C History of knee surgery History of delivery Family History Family History Father Diabetes mellitus Hypertension MRSA (methicillin resistant Staphylococcus aureus) Mother H/O: hysterectomy Cholecystectomy planned Sibling Hypothyroidism Grandparent Acute myocardial infarction Cerebrovascular accident Grandparent Lung cancer Grandparent Heart disease Social History Social History Social History: Smoking status: Never smoker Second hand tobacco smoke exposure: No Alcohol intake: current Alcohol use details: occasionally Substance use: never Substance use type: does not use Do You Feel Safe in your Home?: Yes Lack of Transportation: No Lack of Food: Never True Current Housing: I Have Housing Concerned About Future Housing: No Difficulty Paying Gas/Electric Bills: No Difficulty Paying for Meds: No Currently Unemployed: No Education: Bachelor's Degree Difficulty w/ Childcare or Family Care: No Living arrangements: with family Occupation/Education: occupation Gender identity (if verbalized by the patient): Female Sexual Orientation (if Verbalized by the Patient): Straight or Heterosexual Spiritual care concerns: No Anes - Eval Final PreProcedure Day of Procedure 01/28/25 11:54 Patient weight: obese Heart: regular rate and rhythm Lungs: clear to auscultation Airway: Mallampati scale class II and special considerations (broken crown upper left) Neurological: alert and oriented Last oral intake: >/= 8 hours ASA classification: III Emergent: no Anesthetic plan: proceed Anesthesia type and monitoring: general ETT and standard monitoring Results Review: All pre-operative results and documents have been reviewed as part of the pre- operative evaluation. Informed Consent: The patient's anesthetic plan and its attendant risks and benefits were discussed with the patient/family/POA. Questions were solicited and answers provided to the satisfaction of the patient/family/POA.
[2025-01-28] MEDS: BUPIVACAINE/EPINEPHRINE 0.5% 50 ML VIAL 30 ML INFILTRATE (12:47)
[2025-01-28] MEDS: LACTATED RINGERS 1,000 ML 30 ML IV CONT ×2 (13:48→13:49)
--- NOTE | 2025-01-28 15:48 | P.OP_ITS ---
Procedure Note - Detailed Date of Procedure 01/28/25 Pre-op Diagnosis Impingement syndrome left shoulder Post-op Diagnosis Other (Left shoulder 1. Partial thickness rotator cuff tear 2. Impingement syndrome) Procedure Performed Left shoulder arthroscopic extensive debridement with subacromial decompression Surgeon Tal Wesley MD Facility Coordinator Maryam Mcgregor PA-C Anesthesia General and Regional (Interscalene block) Findings Low grade partial thickness tear of the supraspinatus bursal side. Minimal fraying of the anterior labrum. Description of Procedure Preoperative antibiotics were given. Interscalene block was given in the preoperative holding area. The patient was brought to the operating room. Careful positioning in the beach chair was accomplished. The head neck were carefully positioned. A small bump was placed under the shoulder. The shoulder was prepped and draped in the usual sterile fashion. Examination under anesthesia performed. No abnormal findings. Standard posterior and anterior arthroscopic portals were established. The articular cartilage was normal. There was minimal fraying of the anterior labrum consistent with a history of anterior dislocation. The rotator cuff was normal. Attention was turned to the subacromial space. The bursa was thickened. A complete bursectomy was performed. The supraspinatus showed clear impingement on the undersurface of the acromion. The acromion was clearly visualized. The undersurface of the acromion was cleared with a radiofrequency probe. The prominent anterolateral bone was removed with the arthroscopic bur. The coracoacromial ligament was released. Loose bone fragments were carefully irrigated from the joint. The bursal tear was debrided. The tear was estimated at 15%. The remaining tendon was healthy. The arthroscopic instruments were removed. The wounds were closed with interrupted 4-0 Monocryl suture followed by Steri-Strips. A sterile dressing was applied with a sling. The patient was extubated and brought to the recovery room in stable condition. There were no complications. Estimated Blood Loss 10 Drains No Packing No Pathology None sent Complications No immediate complications Condition Stable Disposition PACU [facility] Billing Surgery - Charge Forward: Surgery Billing
== END 2025-01-28 15:47 | disposition home or self-care (01) ==
PROVIDERS: PCP Family Medicine; Visit Provider Orthopaedic Surgery
PROC: (CPT 29805; principal; 2025-01-28 12:00)
DX: M75.42 Impingement syndrome of left shoulder (principal); M75.112 Incomplete rotator cuff tear or rupture of left shoulder, not specified as traumatic; M75.82 Other shoulder lesions, left shoulder; I10 Essential (primary) hypertension; F51.02 Adjustment insomnia; E66.9 Obesity, unspecified; Z68.33 Body mass index [BMI] 33.0-33.9, adult; Z79.51 Long term (current) use of inhaled steroids; Z79.899 Other long term (current) drug therapy; Z98.890 Other specified postprocedural states; Z98.51 Tubal ligation status; Z87.892 Personal history of anaphylaxis; Z85.3 Personal history of malignant neoplasm of breast; Z80.1 Family history of malignant neoplasm of trachea, bronchus and lung; Z82.49 Family history of ischemic heart disease and other diseases of the circulatory system
CPT/HCPCS: 29823; J0690; A4565; A9270; J0166; J1100; J1171; J1885; J2003; J2250; J2405; J2704; J3010; J7120